=== PATIENT | female | born 1930 | race Caucasian/White ===

== ENCOUNTER → 2016-05-26 | Outpatient (CLI) | payer BC ==
[~2016-05-26] MED LIST: ASPI81TA28 PO; CALC600T PO; DILT120C68 PO; DORZ1SOL6 OP; FLUT0.15 NAE; HYOS1TAB PO; LEVE250T PO; LEVO25TA5 PO; OXYC-57 PO
--- NOTE | 2016-05-27 13:19 | MAMMOGRAPHY REPORT ---
BILATERAL DIGITAL SCREENING MAMMOGRAM TOMOSYNTHESIS WITH CAD: 05/26/2016 CLINICAL HISTORY: Asymptomatic. Personal history of breast cancer. TECHNIQUE: Breast tomosynthesis in addition to standard 2D mammography was performed. Current study was also evaluated with a Computer Aided Detection (CAD) system. COMPARISON: Comparison is made to exams dated: 05/25/2015 mammogram, 01/20/2014 mammogram, 2 mammogram, 12/30/2012 mammogram, and 12/27/2010 mammogram - [facility]. BREAST COMPOSITION: There are scattered areas of fibroglandular density in both breasts. FINDINGS: There are stable post surgical changes within the left breast. A linear scar marker over lies the upper outer middle one third of the left breast. There are vascular calcifications bilater ally. A stable intramammary lymph node in the right upper outer quadrant. No new suspicious mass, architectural distortion or cluster of microcalcifications is seen. IMPRESSION: ACR BI-RADS CATEGORY 1: NEGATIVE There is no mammographic evidence of malignancy. A 1 year screening mammogram is recommended. The p atient will receive written notification of the results. Approximately 10% of breast cancers are not detected with mammography. A negative mammographic repor t should not delay biopsy if a clinically suggestive mass is present. Shakira Shahid M.D. ay/:05/26/2016 17:11:51 Patent Law Specialist: Frieda BALL(R)(M), [facility] letter sent: Normal 1/2 BI-RADS Code: ACR BI-RADS Category 1: Negative
== END ==
LOC: C.MAMM 13:43
PROVIDERS: ATTEND Internal Medicine
DX: Z12.31 Encounter for screening mammogram for malignant neoplasm of breast (principal); Z85.3 Personal history of malignant neoplasm of breast

== ENCOUNTER → 2016-08-15 | Outpatient (CLI) | payer BC ==
[~2016-08-15] MED LIST changes: -OXYC-57 PO
[2016-08-15 09:21] LABS: ALT/SGPT 30 U/L (12-78); AST/SGOT 26 U/L (15-37); BLOOD UREA NITROGEN 16 mg/dl (7-18); CALCIUM 9.1 mg/dl (8.5-10.1); CARBON DIOXIDE 27 mmol/L (21-32); CHLORIDE 108 mmol/L (98-107); CREATININE 0.77 mg/dl (0.60-1.20); GLUCOSE 89 mg/dl (70-99); POTASSIUM 4.2 mmol/L (3.5-5.1); SODIUM 141 mmol/L (136-145)
[2016-08-15 09:24] LABS: ALKALINE PHOSPHATASE 61 U/L (45-117)
== END | disposition home or self-care (01) ==
LOC: C.LABFOXMH 08:59
PROVIDERS: ATTEND Internal Medicine
DX: I10 Essential (primary) hypertension (principal)

== ENCOUNTER → 2017-05-27 | Outpatient (CLI) | payer BC ==
--- NOTE | 2017-05-27 15:13 | MAMMOGRAPHY REPORT ---
BILATERAL DIGITAL SCREENING MAMMOGRAM TOMOSYNTHESIS WITH CAD: 05/27/2017 CLINICAL HISTORY: Asymptomatic. Personal history of breast cancer. TECHNIQUE: Breast tomosynthesis in addition to standard 2D mammography was performed. Current study was also evaluated with a Computer Aided Detection (CAD) system. COMPARISON: Comparison is made to exams dated: 05/26/2016 mammogram, 05/25/2015 mammogram, 01/20/2014 mammogram, 12/30/2012 mammogram, 12/30/2011 mammogram, and 12/27/2010 mammogram - [facility]. BREAST COMPOSITION: There are scattered areas of fibroglandular density in both breasts. FINDINGS: There is evidence of prior surgery in the left breast, with a scar marker overlying the upp er outer quadrant. There are mild vascular calcifications in the left breast and a stable intramamma ry lymph node in the right upper outer quadrant. No new suspicious mass, architectural distortion or cluster of microcalcifications is seen. IMPRESSION: ACR BI-RADS CATEGORY 1: NEGATIVE There is no mammographic evidence of malignancy. A 1 year screening mammogram is recommended. The pa tient will receive written notification of the results. Approximately 10% of breast cancers are not detected with mammography. A negative mammographic report should not delay biopsy if a clinically suggestive mass is present. Shakira Shahid M.D. ay/:05/27/2017 12:41:32 Forming Roll Operator: Ashley MONET)(Mario)(BD), [facility] letter sent: Normal 1/2 BI-RADS Code: ACR BI-RADS Category 1: Negative
== END | disposition home or self-care (01) ==
LOC: C.MAMM 09:53
PROVIDERS: ATTEND Internal Medicine
DX: Z12.31 Encounter for screening mammogram for malignant neoplasm of breast (principal); Z85.3 Personal history of malignant neoplasm of breast

== ENCOUNTER 2017-06-27 22:31 | Observation (INO) | payer BC ==
[~2017-06-27] VITALS: Ht 154.9 cm; Wt 53.0 kg
[~2017-06-27 22:31] MED LIST changes: -DORZ1SOL6 OP; +DORZ1SOL6 OPB
[2017-06-27] MEDS ORDERED: SODIUM CHLORIDE 0.9% 1000ML 1,000 ML IV SCH (23:01)
[2017-06-27] MEDS ORDERED: DILTIAZEM HCL 120 MG EXT REL CAP PO STA (23:06)
[2017-06-27] MEDS ORDERED: LEVETIRACETAM 500 MG TAB PO STA (23:06)
[2017-06-27] MEDS ORDERED: LEVOTHYROXINE 25 MCG TAB PO STA (23:06)
[2017-06-27 23:31] LABS: BASO % 0.9 %; BASO ABS # 0.07 K/uL (0-0.2); EOS % 1.9 %; EOS ABS # 0.15 K/uL (0-0.5); HEMATOCRIT 43.5 % (37-47); HEMOGLOBIN 14.9 g/dL (12.0-16.0); IG# 0.02 K/uL (0.00-0.02); LYMPH % 27.4 %; LYMPH ABS # 2.14 K/uL (1.2-3.4); MEAN CELL VOLUME 95.2 fL (80-100); MEAN CORPUSCULAR HEMOGLOBIN 32.6 pg (25-34); MEAN CORPUSCULAR HGB CONC 34.3 g/dl (32-36); MEAN PLATELET VOLUME 11.9 fL (7.4-10.4); MONO % 12.4 %; MONO ABS # 0.97 K/uL (0.11-0.59); NEUT % 57.1 %; NEUT ABS # 4.46 K/uL (1.4-6.5); PLATELET COUNT 242 K/uL (130-400); RED CELL DISTRIBUTION WIDTH CV 14.3 % (11.5-14.5); WHITE BLOOD COUNT 7.81 K/uL (4.8-10.8)
[2017-06-27 23:54] LABS: BLOOD UREA NITROGEN 16 mg/dl (7-18); CALCIUM 8.7 mg/dl (8.5-10.1); CARBON DIOXIDE 27 mmol/L (21-32); CKMB 2.3 ng/ml (0.5-3.6); CREATININE 0.84 mg/dl (0.60-1.20); GLUCOSE 105 mg/dl (70-99); POTASSIUM 3.6 mmol/L (3.5-5.1); SODIUM 140 mmol/L (136-145)
[2017-06-28] VITALS (7 sets, daily range): BP systolic 127–186; BP diastolic 70–86; PULSE 73–81; TEMP 36.7–36.8; O2SAT 95–98; Ht 154.9 cm; Wt 53.0 kg
[2017-06-28 00:03] LABS: INR 0.9 (0.9-1.1); PTT PATIENT 24.8 SECONDS (21.0-31.0)
--- NOTE | 2017-06-28 00:19 | EMERGENCY ROOM VISIT NOTE ---
History Report prepared by Drew: Gwendolyn Villatoro Under the Supervision of: Dr. Radhames Chand M.D. First contact with patient: 22:41 Chief Complaint: CONFUSION Stated Complaint: CONFUSION History of Present Illness The patient is an 86 year old female who presents to the Emergency Room with complaints of persistent confusion starting this morning. The patient has been confused since waking up this morning. She has had trouble communicating. She has been unable to answer questions that she should be able to answer. She is having trouble finding the words. This has improved throughout the day, but she still feels like she cannot answer all questions. She spoke with her daughter this afternoon who felt that the patient seemed "spacey" and confused. She was not talking as much and she would not answer when asked questions. She was not slurring her speech or making up words. She could understand others. She forgot to take her medications today due to her confusion. She denies any headache, numbness, weakness, or trouble walking. She denies any recent head injury. She is on aspirin. She has a history of TIA or CVA several years ago. She has a history of hypertension. Source of History: patient, family Onset: this morning Position: head Quality: other (confusion) Timing: other (persistent) Modifying Factors (Relieving): other (None) Associated Symptoms: No headache, No weakness, No numbness Note: Pt reports difficulty speaking. Review of Systems See HPI for pertinent positives & negatives. A total of 10 systems reviewed and were otherwise negative. Past Medical & Surgical Medical Problems: (1) Chest pain (2) Epilepsy Family History Cancer Social History Smoking Status: Never Smoker Marital Status: Occupation Status: retired Current/Historical Medications Scheduled Aspirin (Aspirin Ec), 81 MG PO QAM Calcium Carbonate (Calcium 600), 1,200 MG PO BID Diltiazem Hcl Ext Rel (Tiazac), 120 MG PO QAM Dorzolamide Hcl-Timolol Maleat (Cosopt Oph), 1 DROPS OPB BID Levetiracetam (Keppra), 500 MG PO BID Levothyroxine Sodium (Levothyroxine Sodium), 1 TAB PO QAM Scheduled PRN Fluticasone Propionate (Nasal) (Flonase Allergy Relief), 2 SPRAYS STEPHANIE QAM PRN for CONGESTION Hyoscyamine Sulfate (Levsin), 0.125 MG PO DIRECTED PRN for PRN Allergies Coded Allergies: Phenobarbital (Verified Allergy, Severe, HIVES, 06/27/17) Phenytoin (Verified Allergy, Severe, HIVES, 06/27/17) Physical Exam Vital Signs Date Time Temp Pulse Resp B/P (MAP) Pulse Ox O2 Delivery O2 Flow Rate FiO2 06/27/17 23:17 75 06/27/17 23:14 98 Room Air 06/27/17 22:33 36.5 85 20 205/87 96 Room Air Physical Exam Constitutional: Vital signs reviewed. Eyes: Pupils are equal round reactive to light. Conjunctiva are noninjected. ENT: Pharynx is clear without erythema or exudate. Mucous membranes are moist. Neck supple without meningeal signs. Respiratory: Clear to auscultation bilaterally. Breath sounds are equal bilaterally. Cardiovascular: Regular rate and rhythm. No rubs or gallops. GI: Soft, nondistended and nontender. Bowel sounds are present. Musculoskeletal: No peripheral edema. No lower extremity tenderness. Integumentary: No cyanosis. Neurological: The patient is alert and oriented to person and place. Cranial nerves II-XII are intact. Motor is 5 out of 5 all extremities. Sensation is intact to light touch all extremities. Normal speech. No pronator drift. No limb ataxia. Psychiatric: Normal affect. Medical Decision & Procedures ER Provider Diagnostic Interpretation: X-ray results as stated below per interpretation by me: Chest X-ray: No acute infiltrate, no CHF. Radiology results as stated below per my review and the [facility] radiologist's interpretation: Head CT: No intracranial hemorrhage or acute cortical infarct. Laboratory Results 06/27/17 23:10 Red Blood Count 4.57, Mean Corpuscular Volume 95.2, Mean Corpuscular Hemoglobin 32.6, Mean Corpuscular Hemoglobin Concent 34.3, Mean Platelet Volume 11.9, Neutrophils (%) (Auto) 57.1, Lymphocytes (%) (Auto) 27.4, Monocytes (%) (Auto) 12.4, Eosinophils (%) (Auto) 1.9, Basophils (%) (Auto) 0.9, Neutrophils # (Auto ) 4.46, Lymphocytes # (Auto) 2.14, Monocytes # (Auto) 0.97, Eosinophils # (Auto ) 0.15, Basophils # (Auto) 0.07 06/27/17 23:10 Test 06/27/17 23:10 White Blood Count 7.81 K/uL (4.8-10.8) Red Blood Count 4.57 M/uL (4.2-5.4) Hemoglobin 14.9 g/dL (12.0-16.0) Hematocrit 43.5 % (37-47) Mean Corpuscular Volume 95.2 fL (80-100) Mean Corpuscular Hemoglobin 32.6 pg (25-34) Mean Corpuscular Hemoglobin Concent 34.3 g/dl (32-36) Platelet Count 242 K/uL (130-400) Mean Platelet Volume 11.9 fL (7.4-10.4) Neutrophils (%) (Auto) 57.1 % Lymphocytes (%) (Auto) 27.4 % Monocytes (%) (Auto) 12.4 % Eosinophils (%) (Auto) 1.9 % Basophils (%) (Auto) 0.9 % Neutrophils # (Auto) 4.46 K/uL (1.4-6.5) Lymphocytes # (Auto) 2.14 K/uL (1.2-3.4) Monocytes # (Auto) 0.97 K/uL (0.11-0.59) Eosinophils # (Auto) 0.15 K/uL (0-0.5) Basophils # (Auto) 0.07 K/uL (0-0.2) RDW Standard Deviation 50.0 fL (36.4-46.3) RDW Coefficient of Variation 14.3 % (11.5-14.5) Immature Granulocyte % (Auto) 0.3 % Immature Granulocyte # (Auto) 0.02 K/uL (0.00-0.02) Prothrombin Time 9.7 SECONDS (9.0-12.0) Prothromb Time International Ratio 0.9 (0.9-1.1) Activated Partial Thromboplast Time 24.8 SECONDS (21.0-31.0) Partial Thromboplastin Ratio 1.0 Anion Gap 6.0 mmol/L (3-11) Est Creatinine Clear Calc Drug Dose 36.9 ml/min Estimated GFR () 73.5 Estimated GFR (Non- 63.4 BUN/Creatinine Ratio 19.2 (10-20) Calcium Level 8.7 mg/dl (8.5-10.1) Magnesium Level 2.4 mg/dl (1.8-2.4) Total Creatine Kinase 92 U/L (26-192) Creatine Kinase MB 2.3 ng/ml (0.5-3.6) Creatine Kinase MB Ratio 2.5 (0-3.0) Troponin I < 0.015 ng/ml (0-0.045) Laboratory results as reviewed by me. Medications Administered Medications (Trade) Dose Ordered Sig/Tremayne Route Start Time Stop Time Status Last Admin Dose Admin Sodium Chloride 1,000 ml @ 50 mls/hr Q20H IV 06/27/17 23:01 07/27/17 23:00 06/27/17 23:37 50 MLS/HR Levetiracetam (Keppra Tab) 500 mg NOW STAT PO 06/27/17 23:06 06/27/17 23:08 DC 06/27/17 23:36 500 MG Levothyroxine Sodium (Synthroid Tab) 25 mcg NOW STAT PO 06/27/17 23:06 06/27/17 23:08 DC 06/27/17 23:37 25 MCG Diltiazem HCl (TIAzac CAP) 120 mg NOW STAT PO 06/27/17 23:06 06/27/17 23:08 DC 06/27/17 23:37 120 MG ECG Per My Interpretation Indication: altered mental status Rate (beats per minute): 70 Rhythm: normal sinus Findings: other (hyperacute T waves, no ST elevation, no PVC) Comparison ECG Date: 15-Mar-2015 Change: no significant change ED Course 2243: The patient was evaluated in room A4B. A complete history and physical exam was performed. 2301: Sodium Chloride 1000 ml @ 50 mls/hr IV. 2306: Diltiazem HCl 120 mg PO, Synthroid Tab 25 mcg PO, Keppra Tab 500 mg PO. 2341: I discussed the patient's case with Dr. Gill, [facility] hospitalist. She will evaluate the patient for further management. 0004: I reevaluated the patient. Her blood pressure is still high, but she just got her oral medications. I discussed the results with her and family. They verbalized agreement of the treatment plan. She will be evaluated for further management. Hospitalist was at bedside. Medical Decision This is an 86-year-old female who presents with confusion and difficulty with her speech. Differential diagnosis includes TIA, CVA, intracranial mass, intracranial hemorrhage, metabolic derangement. I did perform a limited focused review of portions of the patient's old chart on the electronic medical record. The patient has had no recent pertinent visits to this hospital. I did evaluate the patient as noted above. The patient is presenting with difficulty expressing herself and confusion today. IV access was established. The patient was placed on a continuous shelter monitor. She is very hypertensive but states that she did not take any of her medications. I did give her her medications as noted above. I did order and personally review the patient's 12-lead EKG and chest x-ray as described above. I did order and review the patient's blood work as noted in the electronic medical record. I did order a CT of the head. I did review the images myself as well as the radiology report as described above. I did discuss the test results with the patient and her family. I did recommend hospitalization for further evaluation of her symptoms and MRI of the brain. I did discuss the case with Dr. Gill and the case resource manager. Her blood pressure still elevated but she was just given the medications. Should her blood pressure still be elevated she will be given IV labetalol. Medication Reconcilliation Current Medication List: was personally reviewed by me Blood Pressure Screening Patient's blood pressure: Elevated blood pressure Blood pressure disposition: Referred to PCP Consults Consulting Physician: Dr. Gill [facility] hospitalist Returned Call: [phone] I discussed the patient's case with her. She will evaluate the patient for further management. Impression Primary Impression: Expressive aphasia Additional Impressions: Confusion Hypertensive urgency Scribe Attestation The scribe's documentation has been prepared under my direct and personally reviewed by me in its entirety. I confirm that the note above accurately reflects all work, treatment, procedures, and medical decision making performed by me. Departure Information Dispostion Being Evaluated By Hospitalist Referrals Nicki Amado (PCP) Patient Instructions [facility] Problem Qualifiers
[2017-06-28] MEDS ORDERED: PHARMACIST DISCHARGE MED REC CONSULT PRN (00:30)
[2017-06-28] MEDS ORDERED: FLUTICASONE PROPIONATE NA SPR 16 GM BTL NAE PRN (00:30)
[2017-06-28] MEDS ORDERED: ALUMINUM/MAGNESIUM/SIMETH (MAALOX MAX) 30 ML UDC PO PRN (00:30)
[2017-06-28] MEDS ORDERED: MAGNESIUM HYDROXIDE SUSP 30 ML UDC PO PRN (00:30)
[2017-06-28] MEDS ORDERED: POLYETHYLENE (MIRALAX) 17 GM PACK PO PRN (00:30)
[2017-06-28] MEDS ORDERED: ONDANSETRON INJ 2 MG/ML 2 ML VIAL IV PRN (00:30)
[2017-06-28] MEDS ORDERED: IV FLUIDS COMPLETED PRN (00:30)
[2017-06-28] MEDS ORDERED: ACETAMINOPHEN 325 MG TAB PO PRN (00:30)
--- NOTE | 2017-06-28 00:45 | History and Physical ---
History & Physical Date & Time of Service: June 28, 2017 at 00:25 Chief Complaint: Confusion Primary Care Physician: Nicki Amado History of Present Illness Source: patient, family, spouse This is an 86 yo f with a h/o epilepsy, TIA and HTN that presented to the ED for the evaluation of her stroke like symptoms. The patient woke up this morning feeling slightly confused. She had noticed throughout the day she would make "absent minded" mistakes such as forgetting to put on her underwear and she would realize hours later the mistakes. She also found herself forgetting words during conversations and "having a hard time to find words". She denies any slurring of words or facial drooping. She denies having any weakness in her extremities, blurry vision, difficulty with swallowing, chest pain or SOB. She feels symptoms improving. She did forget to take her medications this morning as well and bp is found to be > 200 systolic. This is unusual for her. The patient has had a TIA " years ago" and has been on ASA 81 mg. Lives at [facility] with her . Past Medical/Surgical History Medical Problems: (1) Chest pain (2) Epilepsy (3) Precordial chest pain (4) Right radial fracture Family History Cancer Social History Smoking Status: Never Smoker Smokeless Tobacco Use: No Alcohol Use: one glass with dinner Drug Use: none Marital Status: Housing status: lives with significant other Occupational Status: retired Immunizations History of Influenza Vaccine: Unknown History of Tetanus Vaccine?: Unknown History of Pneumococcal: Unknown History of Hepatitis B Vaccine: Unknown Allergies Coded Allergies: Phenobarbital (Verified Allergy, Severe, HIVES, 06/27/17) Phenytoin (Verified Allergy, Severe, HIVES, 06/27/17) Home Medications Scheduled Aspirin (Aspirin Ec), 81 MG PO QAM Calcium Carbonate (Calcium 600), 1,200 MG PO BID Diltiazem Hcl Ext Rel (Tiazac), 120 MG PO QAM Dorzolamide Hcl-Timolol Maleat (Cosopt Oph), 1 DROPS OPB BID Levetiracetam (Keppra), 500 MG PO BID Levothyroxine Sodium (Levothyroxine Sodium), 1 TAB PO QAM Scheduled PRN Fluticasone Propionate (Nasal) (Flonase Allergy Relief), 2 SPRAYS STEPHANIE QAM PRN for CONGESTION Hyoscyamine Sulfate (Levsin), 0.125 MG PO DIRECTED PRN for PRN Review of Systems Constitutional: No fever, No chills, No sweats Eyes: No worsening of vision ENT: No hearing loss Respiratory: No cough, No sputum, No wheezing, No shortness of breath, No dyspnea on exertion, No dyspnea at rest, No hemoptysis Cardiovascular: No chest pain Abdomen: No pain, No nausea, No vomiting, No diarrhea, No constipation Musculoskeletal: No joint pain, No muscle pain Genitourinary - Female: No dysuria, No hematuria Neurologic: + memory loss, + problem reported (as above), No paralysis, No weakness, No numbness/tingling, No balance problems Psychiatric: No depression symptoms, No anxiety Endocrine: No fatigue Hematologic / Lymphatic: No abnormal bleeding/bruising Integumentary: No rash Physical Exam Vital Signs Date Time Temp Pulse Resp B/P (MAP) Pulse Ox O2 Delivery O2 Flow Rate FiO2 06/27/17 23:17 75 06/27/17 23:14 98 Room Air 06/27/17 22:33 36.5 85 20 205/87 96 Room Air General Appearance: no apparent distress Head: normocephalic, atraumatic Eyes: normal inspection, PERRL, EOMI ENT: normal ENT inspection, hearing grossly normal Neck: supple, thyroid normal, no JVD, no carotid bruits, trachea midline Respiratory/Chest: normal breath sounds, no respiratory distress, no accessory muscle use Cardiovascular: regular rate, rhythm, no murmur, normal peripheral pulses Abdomen/GI: normal bowel sounds, non tender, soft Back: normal inspection Extremities/Musculoskelatal: no calf tenderness, no pedal edema, normal range of motion Neurologic/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-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 nml as tested, no motor/sensory deficits, alert, normal mood/affect, oriented x 3 Skin: normal color, warm/dry, no rash Lymphatic: no adenopathy Diagnostics Laboratory Results Results Past 24 Hours Test 06/27/17 23:10 Range/Units White Blood Count 7.81 4.8-10.8 K/uL Red Blood Count 4.57 4.2-5.4 M/uL Hemoglobin 14.9 12.0-16.0 g/dL Hematocrit 43.5 37-47 % Mean Corpuscular Volume 95.2 80-100 fL Mean Corpuscular Hemoglobin 32.6 25-34 pg Mean Corpuscular Hemoglobin Concent 34.3 32-36 g/dl Platelet Count 242 130-400 K/uL Mean Platelet Volume 11.9 7.4-10.4 fL Neutrophils (%) (Auto) 57.1 % Lymphocytes (%) (Auto) 27.4 % Monocytes (%) (Auto) 12.4 % Eosinophils (%) (Auto) 1.9 % Basophils (%) (Auto) 0.9 % Neutrophils # (Auto) 4.46 1.4-6.5 K/uL Lymphocytes # (Auto) 2.14 1.2-3.4 K/uL Monocytes # (Auto) 0.97 0.11-0.59 K/uL Eosinophils # (Auto) 0.15 0-0.5 K/uL Basophils # (Auto) 0.07 0-0.2 K/uL RDW Standard Deviation 50.0 36.4-46.3 fL RDW Coefficient of Variation 14.3 11.5-14.5 % Immature Granulocyte % (Auto) 0.3 % Immature Granulocyte # (Auto) 0.02 0.00-0.02 K/uL Prothrombin Time 9.7 9.0-12.0 SECONDS Prothromb Time International Ratio 0.9 0.9-1.1 Activated Partial Thromboplast Time 24.8 21.0-31.0 SECONDS Partial Thromboplastin Ratio 1.0 Sodium Level 140 136-145 mmol/L Potassium Level 3.6 3.5-5.1 mmol/L Chloride Level 107 98-107 mmol/L Carbon Dioxide Level 27 21-32 mmol/L Anion Gap 6.0 3-11 mmol/L Blood Urea Nitrogen 16 7-18 mg/dl Creatinine 0.84 0.60-1.20 mg/dl Est Creatinine Clear Calc Drug Dose 36.9 ml/min Estimated GFR () 73.5 Estimated GFR (Non- 63.4 BUN/Creatinine Ratio 19.2 10-20 Random Glucose 105 70-99 mg/dl Calcium Level 8.7 8.5-10.1 mg/dl Magnesium Level 2.4 1.8-2.4 mg/dl Total Creatine Kinase 92 26-192 U/L Creatine Kinase MB 2.3 0.5-3.6 ng/ml Creatine Kinase MB Ratio 2.5 0-3.0 Troponin I < 0.015 0-0.045 ng/ml Diagnostic Radiology CXR- no overt acute changes per personal review CT Head- no acute findings, chronic changes noted- per [facility] EKG HR 70 Normal sinus rhythm Normal ECG When compared with ECG of 15-MAR-2015 07:05, No significant change was found Impression Assessment and Plan This is an 86 yo f with a h/o TIA, HTN, epilepsy that presents to us with expressive aphasia/ hypertensive urgency concerning for TIA vs stroke TIA with stroke r/o, no TPA - tele admission - MRI brain without contrast - Carotid doppler, echo - FLP - Continue ASA 81 mg - consult neuro Hypertensive urgency - difficult to determine if this is a cause of the patient's symptoms vs sequelae for forgetting her medications this am - PO medications give in ED - Will monitor and treat for > 220/120 with IV bp medications - Diltiazem to restart in am at 120 mg qam Epilepsy - cont Keppra 500 mg bid Hypothyroidism - Synthroid 25 mcg cont DVT Prophylaxis FULL CODE Attending addendum: I have physically seen this patient, have supervised the medical residents activities, and agree with the H&P unless as otherwise noted. Assessment and Plan: TIA with history of previous TIA, and spontaneously resolved symptoms of expressive aphasia without use of TPA/history of seizure disorder-- The patient will be admitted to telemetry for serial cardiac enzymes, serial EKG's, cardiac rhythm monitoring and a 2-D echocardiogram with Dopplers. Discontinue aspirin 81 mg daily. Start clopidogrel 75 mg daily. No seizure activity or postictal state suggested. Continue Keppra 500 mg p.o. twice daily. Continue diltiazem 120 mg p.o. every morning. Permissive hypertension target systolic blood pressure to be 180. Order MRI brain combo, MRA neck combo, and MRA head without contrast. Consult neurology. 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
[2017-06-28] MEDS ORDERED: LEVOTHYROXINE 25 MCG TAB PO SCH (06:00)
--- NOTE | 2017-06-28 06:16 | DIAGNOSTIC IMAGING REPORT ---
CHEST ONE VIEW PORTABLE CLINICAL HISTORY: Stroke COMPARISON STUDY: 03/14/2015 FINDINGS: The cardiac and mediastinal contours are normal. There is no evidence of focal pulmonary consolidation. There is no evidence of failure. No pleural effusions are visualized.[ There is minimal linear scar/atelectasis the left lung base. IMPRESSION: No active disease in the chest. Electronically signed by: Duong Murry M.D. 06/28/2017 6:15 AM Dictated Date/Time: 06/28/2017 6:14 AM
--- NOTE | 2017-06-28 06:17 | DIAGNOSTIC IMAGING REPORT ---
CT HEAD WITHOUT CONTRAST (CT) CLINICAL HISTORY: Stroke COMPARISON STUDY: 01/14/2015 TECHNIQUE: Axial CT of the brain is performed from the vertex to the skull base. IV contrast was not administered for this examination. A dose lowering technique was utilized adhering to the principles of ALARA. CT DOSE: 537.48 mGy.cm FINDINGS: No intra or extra-axial mass lesions are visualized. There is no CT evidence of acute cortical infarction. There is no evidence of midline shift. There is no acute hemorrhage. No calvarial fractures are visualized. There are patchy white matter hypodensities likely on a small vessel basis. There is no evidence of pathologic ventricular dilatation. There is no evidence of acute sinusitis IMPRESSION: No acute intracranial findings Electronically signed by: Duong Murry M.D. 06/28/2017 6:16 AM Dictated Date/Time: 06/28/2017 6:15 AM
[2017-06-28] MEDS ORDERED: LEVETIRACETAM 250 MG TAB PO SCH ×3 (09:00→21:00)
[2017-06-28] MEDS ORDERED: CALCIUM 600MG + VIT D 400 IU TAB PO SCH (09:00)
[2017-06-28] MEDS ORDERED: DILTIAZEM HCL 120 MG EXT REL CAP PO SCH (09:00)
[2017-06-28] MEDS ORDERED: DORZOLAMIDE/TIMOLOL 22.3/6.8MG/ML 10 ML BTL OPB SCH (09:00)
[2017-06-28] MEDS ORDERED: CLOPIDOGREL BISULFATE 75 MG TAB PO SCH (09:00)
[2017-06-28] MEDS ORDERED: ASPIRIN 81 MG ECTAB PO SCH (09:00)
[2017-06-28] MEDS ORDERED: HEPARIN SOD 5000 UNIT/0.5 ML CARP SQ SCH (09:00)
--- NOTE | 2017-06-28 09:35 | Neurology Consultation ---
Neurology Consultation Date of Consultation: June 28, 2017. Attending Physician: Norbert Ricci D.O. Primary Care Physician: Nicki Amado Reason for Consultation: Stroke-like episode History of Present Illness Source: patient, hospital records The patient is an 86-year-old left-handed female with a chief complaint confusion and associated word-finding difficulty that was noted upon awakening yesterday morning. Her symptoms improved gradually yesterday and have resolved this morning. She denies experiencing any associated weakness, sensory loss, or change in vision. She has had similar episodes previously that have been potentially attributed to her seizure disorder for which she has followed with Dr. Onofre in the past. She continues with Keppra 500 milligrams twice daily and reports that it is been a few years since her last seizure-like episode. Her past medical history is also notable for TIA and hypertension. She takes a daily low-dose aspirin. I reviewed the images and radiologist's interpretation of this patient CT of the head completed yesterday. This study is negative for hemorrhage or acute process. There are patchy white matter hypodensities consistent with chronic cerebral vascular change. Electrocardiogram reveals a normal sinus rhythm, 70 beats per minute. The patient has been ordered Plavix as well as more extensive neuro imaging including MRI of the brain and MR angiography of the head and neck as well as a carotid duplex and transthoracic echocardiogram. She was notably hypertensive at the time of presentation with a blood pressure of 205/87. Her current blood pressure is improved. She denies headache or any recurrence of her neurologic symptoms at this time. Past Medical/Surgical History Medical Problems: (1) Confusion Status: Acute (2) Expressive aphasia Status: Acute (3) Hypertensive urgency Status: Acute (4) Precordial chest pain Status: Acute Family History Noncontributory Social History Smokeless Tobacco Use: No Alcohol Use: one glass with dinner Drug Use: none Marital Status: Occupation Status: retired Allergies Coded Allergies: Phenobarbital (Verified Allergy, Severe, HIVES, 06/27/17) Phenytoin (Verified Allergy, Severe, HIVES, 06/27/17) Current Inpatient Medications Current Inpatient Medications Medications (Trade) Dose Ordered Sig/[place] Route Start Time Stop Time Status Last Admin Dose Admin Miscellaneous Information (Pharmacist Discharge Med Rec Consult) 1 ea UD PRN N/A 06/28/17 00:30 07/28/17 00:29 Heparin Sodium (Porcine) (Heparin Sq 5000 Unit/0.5ml) 5,000 unit Q12 SQ 06/28/17 09:00 07/28/17 08:59 Acetaminophen (Tylenol Tab) 650 mg Q4H PRN PO 06/28/17 00:30 07/28/17 00:29 06/28/17 07:27 650 MG Al Hydrox/Mg Hydrox/Simethicone (Maalox Max Susp) 15 ml Q4H PRN PO 06/28/17 00:30 07/28/17 00:29 Magnesium Hydroxide (Milk Of Magnesia Susp) 30 ml Q12H PRN PO 06/28/17 00:30 07/28/17 00:29 Ondansetron HCl (Zofran Inj) 4 mg Q6H PRN IV 06/28/17 00:30 07/28/17 00:29 Polyethylene (Miralax Powder Packet) 17 gm DAILY PRN PO 06/28/17 00:30 07/28/17 00:29 Diltiazem HCl (TIAzac CAP) 120 mg QAM PO 06/28/17 09:00 07/28/17 08:59 06/28/17 07:28 120 MG Dorzolamide/ Timolol (Cosopt Op Soln) 1 drops BID OPB 06/28/17 09:00 07/28/17 08:59 06/28/17 07:29 1 DROPS Fluticasone Propionate (Flonase Nasal [place]) 2 sprays QAM PRN STEPHANIE 06/28/17 00:30 07/28/17 00:29 Levetiracetam (Keppra Tab) 500 mg BID PO 06/28/17 09:00 07/28/17 08:59 06/28/17 07:28 500 MG Levothyroxine Sodium (Synthroid Tab) 25 mcg DAILYBB PO 06/28/17 06:00 07/28/17 05:59 06/28/17 06:20 25 MCG Calcium/Vitamin D (Caltrate Plus Tab) 2 tab BID PO 06/28/17 09:00 07/28/17 08:59 06/28/17 07:29 2 TAB Miscellaneous (Iv Fluids Completed) 1 ea PRN PRN N/A 06/28/17 00:30 06/28/18 00:29 Clopidogrel Bisulfate (plAVix TAB) 75 mg QAM PO 06/28/17 09:00 07/28/17 08:59 06/28/17 07:29 75 MG Review of Systems Constitutional: No fever chills Eyes: No vision loss or diplopia ENT: No vertigo, tinnitus, or hearing loss Cardiovascular: No chest pain or palpitations Respiratory: No coughing or shortness of breath Neurological: As per history of present illness Musculoskeletal: No myalgia or arthralgia Hematologic: No abnormal bruising or bleeding A full 10 point review of systems was obtained from this patient with pertinent positives and negatives described in the history of present illness and otherwise listed above. All remaining systems were reviewed and are negative. Physical Exam Vital Signs (Past 24 Hrs): Date Time Temp Pulse Resp B/P (MAP) Pulse Ox O2 Delivery O2 Flow Rate FiO2 06/28/17 08:00 Room Air 06/28/17 07:47 36.8 73 16 148/71 (96) 97 Room Air 06/28/17 07:13 36.8 73 16 148/71 (96) 97 06/28/17 04:00 Room Air 06/28/17 03:27 36.8 77 17 147/70 (95) 95 Room Air 06/28/17 01:44 36.8 81 18 186/86 98 Room Air 06/28/17 01:03 74 17 187/94 98 Room Air 06/28/17 00:05 75 203/86 98 Room Air 06/27/17 23:17 75 06/27/17 23:14 98 Room Air 06/27/17 22:33 36.5 85 20 205/87 96 Room Air This is a well-developed, well-nourished elderly female. She is lying comfortably in bed. She is alert and fully oriented. Recent and remote memory intact. Attention and concentration normal. Patient exhibits a normal spontaneous speech pattern. She is able to name objects, repeat phrases, and read text without difficulty. She exhibits an age-appropriate fund of knowledge a normal vocabulary. Visual liu full to confrontation. Visual acuity normal. Pupils equal round react to light and accommodation. Eye movements normal. Facial sensation intact. There is normal facial symmetry and strength. No facial droop. Hearing intact. Palate elevates to midline. Tongue protrudes to midline. Shoulder shrug strength intact. Sensation intact in all 4 limbs. Deep tendon reflexes intact and symmetrical for the arms and legs. Plantar responses downgoing bilaterally. There is no dysdiadochokinesia or dysmetria of [id number] or heel to jacobs bilaterally. I am unable to adequately visualize the optic nerves and posterior segments with direct ophthalmoscopic examination. Gait and station not tested due to safety concerns. Patient exhibits normal strength and tone for all 4 limbs proximally and distally. No atrophy. No abnormal movements observed. Laboratory Results Past 24 Hours: 06/27/17 23:10 Red Blood Count 4.57, Mean Corpuscular Volume 95.2, Mean Corpuscular Hemoglobin 32.6, Mean Corpuscular Hemoglobin Concent 34.3, Mean Platelet Volume 11.9, Neutrophils (%) (Auto) 57.1, Lymphocytes (%) (Auto) 27.4, Monocytes (%) (Auto) 12.4, Eosinophils (%) (Auto) 1.9, Basophils (%) (Auto) 0.9, Neutrophils # (Auto ) 4.46, Lymphocytes # (Auto) 2.14, Monocytes # (Auto) 0.97, Eosinophils # (Auto ) 0.15, Basophils # (Auto) 0.07 06/27/17 23:10 Test 06/27/17 23:10 White Blood Count 7.81 K/uL (4.8-10.8) Red Blood Count 4.57 M/uL (4.2-5.4) Hemoglobin 14.9 g/dL (12.0-16.0) Hematocrit 43.5 % (37-47) Mean Corpuscular Volume 95.2 fL (80-100) Mean Corpuscular Hemoglobin 32.6 pg (25-34) Mean Corpuscular Hemoglobin Concent 34.3 g/dl (32-36) Platelet Count 242 K/uL (130-400) Mean Platelet Volume 11.9 fL (7.4-10.4) Neutrophils (%) (Auto) 57.1 % Lymphocytes (%) (Auto) 27.4 % Monocytes (%) (Auto) 12.4 % Eosinophils (%) (Auto) 1.9 % Basophils (%) (Auto) 0.9 % Neutrophils # (Auto) 4.46 K/uL (1.4-6.5) Lymphocytes # (Auto) 2.14 K/uL (1.2-3.4) Monocytes # (Auto) 0.97 K/uL (0.11-0.59) Eosinophils # (Auto) 0.15 K/uL (0-0.5) Basophils # (Auto) 0.07 K/uL (0-0.2) RDW Standard Deviation 50.0 fL (36.4-46.3) RDW Coefficient of Variation 14.3 % (11.5-14.5) Immature Granulocyte % (Auto) 0.3 % Immature Granulocyte # (Auto) 0.02 K/uL (0.00-0.02) Prothrombin Time 9.7 SECONDS (9.0-12.0) Prothromb Time International Ratio 0.9 (0.9-1.1) Activated Partial Thromboplast Time 24.8 SECONDS (21.0-31.0) Partial Thromboplastin Ratio 1.0 Anion Gap 6.0 mmol/L (3-11) Est Creatinine Clear Calc Drug Dose 36.9 ml/min Estimated GFR () 73.5 Estimated GFR (Non- 63.4 BUN/Creatinine Ratio 19.2 (10-20) Calcium Level 8.7 mg/dl (8.5-10.1) Magnesium Level 2.4 mg/dl (1.8-2.4) Total Creatine Kinase 92 U/L (26-192) Creatine Kinase MB 2.3 ng/ml (0.5-3.6) Creatine Kinase MB Ratio 2.5 (0-3.0) Troponin I < 0.015 ng/ml (0-0.045) Impression Resolved confusion/word-finding difficulty. Etiology not completely certain although TIA not excluded. Partial complex seizure with speech arrest not completely excluded in light of her history of seizure disorder and similar episodes in the past. Patient is currently neurologically intact and probably at her baseline. Plan Proceed with stroke evaluation as ordered including MRI of the brain, MRA of the head and neck, carotid ultrasound, and transthoracic echocardiogram. I agree with Plavix 75 milligrams twice daily. Continue medical management of hypertension as appropriate.. I would also recommend increasing her dosage of Keppra to 750 milligrams twice daily. I discussed obtaining an EEG while the patient is an inpatient. However, she would rather have this test completed as an outpatient if absolutely necessary as she has a strong interest in going back home today if her stroke evaluation is negative. I think holding off on the EEG is certainly reasonable at this point in time as I would still recommend empirically increasing her Keppra as above. This patient may follow up with me in clinic.
--- NOTE | 2017-06-28 10:03 | DIAGNOSTIC IMAGING REPORT ---
MR ANGIOGRAPHY OF THE [place] OF [place] NO CONTRAST CLINICAL HISTORY: TIA WITH EXPRESSIVE APHASIA, SEIZURE DISORDER COMPARISON STUDY: None. A 3-D [id number] MR angiographic sequence of the [place] was performed. Both the source and projection images were reviewed. There is no evidence of major intracranial branch occlusion. There is no evidence of intracranial stenosis. There are no lesions suspicious for aneurysm. IMPRESSION: Unremarkable MR angiography of the [place]. Electronically signed by: Duong Murry M.D. 06/28/2017 10:02 AM Dictated Date/Time: 06/28/2017 10:00 AM
--- NOTE | 2017-06-28 11:20 | DIAGNOSTIC IMAGING REPORT ---
MRI OF THE BRAIN WITHOUT AND WITH IV CONTRAST CLINICAL HISTORY: TIA WITH EXPRESSIVE APHASIA, SEIZURE DISORDER COMPARISON STUDY: 01/14/2016 TECHNIQUE: MRI of the brain was performed from the vertex to the skull base utilizing various T1 and T2 weighted sequences. Following the IV administration of 5 mL of Gadavist contrast, additional enhanced images were obtained. FINDINGS: Sagittal T1, axial diffusion, proton density and T2 weighted axial, coronal FLAIR, and pre and post axial T1-weighted images were acquired. These were supplemented with post gadolinium coronal T1 weighted images. No intra or extra-axial mass lesions are visualized. Axial diffusion-weighted images reveal no evidence of acute or subacute infarction. There is no evidence of ventricular dilatation. Proton density T2-weighted and FLAIR images reveal scattered foci of increased T2 signal within the white matter, likely on a small vessel basis. The findings remain similar to the prior January 2016 study There are no abnormal flow voids. There is a stable subtle 5 mm focus of enhancement within the central mateo. This is of doubtful acute clinical significance. IMPRESSION: 1. No evidence of acute or subacute infarction 2. Scattered foci of increased T2 signal within the white matter, likely on a small vessel basis and unchanged from the prior January 2016 study 3. Subtle 5 mm focus of enhancement within the central mateo. This remains unchanged from the prior study and is of doubtful acute clinical significance Electronically signed by: Duong Murry M.D. 06/28/2017 11:19 AM Dictated Date/Time: 06/28/2017 11:15 AM
--- NOTE | 2017-06-28 11:22 | DIAGNOSTIC IMAGING REPORT ---
NECK MRA HISTORY: TIA WITH EXPRESSIVE APHASIA, SEIZURE DISORDER TECHNIQUE: [id number] and gadolinium-enhanced MRA of the neck was performed both before and after the intravenous administration of contrast. All measurements were calculated based on NASCET criteria. The patient was administered 5 cc of intravenous Gadavist. COMPARISON STUDY: None. FINDINGS: The aortic arch and proximal great vessels are widely patent. There is no significant stenosis, occlusion, or dissection identified within the bilateral common carotid, internal carotid, or vertebral arteries. IMPRESSION: No significant stenosis, occlusion, or dissection identified within the carotid or vertebral arteries. Electronically signed by: Duong Murry M.D. 06/28/2017 11:21 AM Dictated Date/Time: 06/28/2017 11:19 AM
[2017-06-28] MEDS ORDERED: PLV75 PO (12:34)
[2017-06-28] MEDS ORDERED: KPP250 PO (12:34)
--- NOTE | 2017-06-28 12:43 | Discharge Instructions ---
Discharge Instructions Date of Service June 28, 2017. Admission Reason for Admission: Expressive Aphasia, Hypertensive Urgency Discharge Discharge Diagnosis / Problem: Suspected TIA, expressive aphasia, hypertension Discharge Goals Goal(s): Improve function, Diagnostic testing (possible EEG) Activity Recommendations Activity Limitations: resume your previous activity . Instructions / Follow-Up Instructions / Follow-Up Medications: -PLAVIX: replaces aspirin for stroke prevention, take 75mg daily -KEPPRA: dose increased to 750mg twice a day per neurology Expressive aphasia, confusion that lasted less than 24 hours possible TIA, no evidence of stroke on MRI brain, MRA head and neck normal no arrhythmia on monitor, echo completed and needs interpreted can be discharged back to independent living, no current neurologic deficits will take Plavix 75mg daily, this replaces aspirin discussed statin therapy, patient says she took in the past, would prefer to not be on them Seizure disorder: concerns that maybe the symptoms were due to seizure Keppra increased to 750mg twice a day Dr. Kc would like to get EEG as outpatient, can be ordered by PCP FOLLOW UP - Dr. Nielson this week - Dr. Kc, neurology clinic, in one month, call for appointment Risk Factors for Stroke: You can reduce your chances of stroke by working with your medical provider to adopt a healthy lifestyle. Some specific ways to lower your chance of stroke are: * If you are a smoker, now is the time to stop smoking cigarettes * If you are diabetic, improve the control of your blood sugars * Avoid excessive amounts of alcohol * Control high blood pressure * Lose weight if you are overweight * Be sure to lead an active lifestyle * Eat a healthy diet low in salt, cholesterol and fat You should know about other risk factors for stroke that you are unable to control. These include: * Age 55 years or older * Male gender * Certain racial groups: , or / * Family History of Stroke, Mini stroke or Heart Attack * Sickle Cell Disease Follow Up: It is important for you to keep your follow up appointments with your medical provider. Current Hospital Diet Patient's current hospital diet: AHA Diet (Heart Healthy) Discharge Diet Recommended Diet: AHA Diet (Heart Healthy) Pending Studies Studies pending at discharge: yes List of pending studies: Echo, transthoracic Medical Emergencies . Who to Call and When: Medical Emergencies: Call 911 immediately if you experience any of the following warning signs and symptoms of Stroke: * Sudden numbness or weakness of the face, arm or leg, especially on one side of the body * Sudden confusion, trouble speaking or understanding * Sudden trouble seeing in one or both eyes * Sudden trouble walking, dizziness, loss of balance or coordination * Sudden severe headache with no cause Do not delay calling 911 if you experience any warning signs or symptoms of a stroke. Delay in seeking medical attention may affect what treatments can be given to you. . Non-Emergent Contact Non-Emergency issues call your: Primary Care Provider, Neurologist Call Non-Emergent contact if: you have any medication questions . . "Provider Documentation" section prepared by Norbert Ricci. . Stroke Core Measures Reason no t-PA for Stroke: Treatment not indicated Reason no antithrom by day 2: Treatment provided - N/A Reason no antithrom at D/C: Treatment provided - N/A Reason no statin at D/C: Refusal of tx by patient Reason no anticoag w/a fib: Treatment not indicated [place] Drug Monitoring Program Search Results: no issues identified
--- NOTE | 2017-06-28 14:50 | Pharmacy Progress Note ---
Pharmacist Stroke Counseling Date of Service June 28, 2017. Scope Pharmacy has been consulted to provide medication discharge counseling for this patient admitted with transient ischemic attack as per the Pharmacist Discharge Counseling for Stroke Patients Protocol. Medications on Discharge New Medications: Clopidogrel Bisulfate (Clopidogrel) 75 Mg Tab 75 MG PO QAM, #30 TAB 3 Refills Levetiractam (Keppra) 250 Mg Tab 750 MG PO BID, #120 TAB 3 Refills Continued Medications: Calcium Carbonate (Calcium 600) 600 Mg Tab 1200 MG PO BID Diltiazem Hcl Ext Rel (Tiazac) 120 Mg Capcr 120 MG PO QAM, CAP Dorzolamide Hcl-Timolol Maleat (Cosopt Oph) 1 Martha Martha 1 DROPS OPB BID, #10 ML 3 Refills Fluticasone Propionate (Nasal) (Flonase Allergy Relief) 50 Mcg/Act Spr 2 SPRAYS STEPHANIE QAM PRN for CONGESTION Hyoscyamine Sulfate (Levsin) 0.125 Mg Tab 0.125 MG PO DIRECTED PRN for PRN, TAB Levothyroxine Sodium (Levothyroxine Sodium) 25 Mcg Tab 1 TAB PO QAM for 90 Days, #90 TAB 3 Refills Discontinued Medications: Aspirin (Aspirin Ec) 81 Mg Tab 81 MG PO QAM Levetiracetam (Keppra) 250 Mg Tab 500 MG PO BID, TAB Note: Current Keppra tablet is 500 mg, not 250 mg Patient uses Levsin for esophageal spasm - uses maybe once a month Action The above medications, specifically ones for stroke treatment/prophylaxis, have been reviewed in detail with the patient and/or patient home furnishings sales representative(s) prior to discharge. This includes indication, common adverse reactions, drug interactions, and medication administration. Medication counseling has been employed using the teach-back method to ensure understanding. Outcome The patient and/or patient home furnishings sales representative(s) have demonstrated understanding of the medications. Please note, they are aware that the pharmacist will call them within 72 hours post-discharge to confirm that the appropriate medications are being taken and answer any further medication related questions the patient might have at that time. Contact information Individual to be contacted: patient Phone number: [phone] Best time to call: around noon Additional comments: * Counseled patient ( also in room) regarding new medications today * She is aware to stop the aspirin and start Plavix. Counseled regarding signs/ symptoms of bleeding. She does not typically take NSAIDS for pain/headache. * Her Keppra is being increased to 750 mg BID and she currently has 500 mg tabs at home (confirmed this with her). Since tablets are NOT able to be split, we sent a 250 mg tablet x 1 home with her for deep. She uses [facility] and they are not open today but she will have [facility] fax her prescriptions to them for tomorrow. She also states that she requires brand only of this because Dr. Nielson thought she had a seizure when getting the generic at one point. I spoke with Dr. Ricci. Brand necessary written on her new Rx. Of note, new Rx was for 250 mg tablets. They make a 750 mg tablet but patient reports she has difficulty swallowing large tablets. Patient okay with using the 250 mg tabs for now and can even take one with her 500 mg tabs she already has at home (just had a 30 day supply filled). * Patient is not being discharged on a statin because she would prefer to not take one. She has already discussed this with Dr. Ricci. Thank you for allowing pharmacy to be involved in the care of this patient. Please call [phone] or [phone] with any additional questions
--- NOTE | 2017-06-28 15:30 | ECHOCARDIOGRAM REPORT ---
*NOTICE TO RECEIVING [employer] This information is strictly Confidential and protected under [place] law. [place] law prohibits you from making any further disclosure of this information unless further disclosure is expressly permitted by the written consent of the person to whom it pertains or is authorized by law. A general authorization for the release of medical or other information is not sufficient for this purpose. Hospital accepts no responsibility if the information is made available to any other person, INCLUDING THE PATIENT. Interpretation Summary * Name: CARLYLE KING Study Date: 06/28/2017 07:40 AM BP: 147/70 mmHg * Patient Location: C.2T\S\S240\S\2 HR: 77 * : 1930 (M/d/yyyy) Gender: Female Height: 61 in * Age: 86 yrs Ethnicity: [place] Weight: 119 lb * Ordering Physician: Cherise Gill * Referring Physician: Nicki Amado * Performed By: Parveen Chatman RCS * * Reason For Study: Stroke like symptoms * BSA: 1.5 m2 * No cardiac source of emboli noted. * -- Conclusions -- * There is borderline concentric left ventricular hypertrophy. * Left ventricular systolic function is normal. * Grade I diastolic dysfunction, (abnormal relaxation pattern). * There is mild mitral regurgitation. Procedure Details * A complete two-dimensional transthoracic echocardiogram was performed (2D, M-mode, Doppler and color flow Doppler). Left Ventricle * The left ventricle is normal in size. * There is borderline concentric left ventricular hypertrophy. * Ejection Fraction = 60-65%. * Left ventricular systolic function is normal. * Grade I diastolic dysfunction, (abnormal relaxation pattern). * The left ventricular wall motion is normal. Right Ventricle * The right ventricle is normal in size and function. * The right ventricular systolic function is normal as assessed by tricuspid annular plane systolic excursion (TAPSE) (normal >1.5 cm). Atria * The left atrial size is normal. * Right atrial size is normal. Mitral Valve * The mitral valve is grossly normal. * There is mild mitral regurgitation. Tricuspid Valve * The tricuspid valve is not well visualized, but is grossly normal. * There is trace tricuspid regurgitation. * Right ventricular systolic pressure is normal. Aortic Valve * The aortic valve is normal in structure and function. * The aortic valve is trileaflet. * No hemodynamically significant valvular aortic stenosis. * There is no significant aortic regurgitation. Pulmonic Valve * The pulmonic valve is not well visualized. Great Vessels * The aortic root is normal size. Pericardium/Pleural * There is no pericardial effusion. Great Vessels * Normal inferior vena cava diameter and respiratory variation suggests normal central venous pressure. MMode 2D Measurements and Calculations IVSd 0.93 cm IVSs 0.96 cm LVIDd 4.0 cm LVIDs 2.7 cm LVPWd 0.87 cm LVPWs 1.1 cm IVS/LVPW 1.1 FS 32.8 % EDV(Teich) 68.9 ml ESV(Teich) 26.3 ml EF(Teich) 61.9 % EDV(cubed) 62.8 ml ESV(cubed) 19.0 ml EF(cubed) 69.7 % % IVS thick 3.6 % % LVPW thick 24.9 % LV mass(C)d 108.1 grams LV mass(C)dI 71.4 grams/m\S\2 LV mass(C)s 71.9 grams LV mass(C)sI 47.5 grams/m\S\2 SV(Teich) 42.6 ml SI(Teich) 28.1 ml/m\S\2 SV(cubed) 43.7 ml SI(cubed) 28.9 ml/m\S\2 Ao root diam 3.2 cm Ao root area 7.9 cm\S\2 ACS 1.0 cm LA dimension 3.3 cm LA/Ao 1.0 EDV(MOD-sp4) 68.0 ml ESV(MOD-sp4) 30.0 ml EF(MOD-sp4) 55.9 % EDV(MOD-sp2) 94.0 ml ESV(MOD-sp2) 40.0 ml EF(MOD-sp2) 57.4 % SV(MOD-sp4) 38.0 ml SI(MOD-sp4) 25.1 ml/m\S\2 SV(MOD-sp2) 54.0 ml SI(MOD-sp2) 35.6 ml/m\S\2 Doppler Measurements and Calculations MV E max cheri 70.6 cm/sec MV A max cheri 75.0 cm/sec MV E/A 0.94 MV P1/2t max cheri 81.2 cm/sec MV P1/2t 68.7 msec MVA(P1/2t) 3.2 cm\S\2 MV dec slope 346.1 cm/sec\S\2 MV dec time 0.21 sec Ao V2 max 94.5 cm/sec Ao max PG 3.6 mmHg Ao max PG (full) 0.67 mmHg LV V1 max PG 2.9 mmHg LV V1 max 85.1 cm/sec PA V2 max 74.8 cm/sec PA max PG 2.3 mmHg PI max cheri 91.7 cm/sec PI max PG 3.4 mmHg PI dec slope 94.4 cm/sec\S\2 PI P1/2t 284.3 msec TR max cheri 170.2 cm/sec
--- NOTE | 2017-07-01 10:59 | Discharge Summary ---
Discharge Summary Date of Service June 28, 2017. Discharge Summary Admission Date: June 28, 2017 at 00:25 Discharge Date: June 28, 2017 Discharge Disposition: Home Principal Diagnosis: TIA with expressive aphasia Problems/Secondary Diagnoses: Hypertension Seizure disorder Immunizations: Have You Had Influenza Vaccine: Unknown History of Tetanus Vaccine?: Unknown History of Pneumococcal: Unknown History of Hepatitis B Vaccine: Unknown Procedures: none Consultations: Neurology Medication Reconciliation New Medications: Clopidogrel Bisulfate (Clopidogrel) 75 Mg Tab 75 MG PO QAM, #30 TAB 3 Refills Levetiractam (Keppra) 250 Mg Tab 750 MG PO BID, #120 TAB 3 Refills Continued Medications: Calcium Carbonate (Calcium 600) 600 Mg Tab 1200 MG PO BID Diltiazem Hcl Ext Rel (Tiazac) 120 Mg Capcr 120 MG PO QAM, CAP Dorzolamide Hcl-Timolol Maleat (Cosopt Oph) 1 Martha Martha 1 DROPS OPB BID, #10 ML 3 Refills Fluticasone Propionate (Nasal) (Flonase Allergy Relief) 50 Mcg/Act Spr 2 SPRAYS STEPHANIE QAM PRN for CONGESTION Hyoscyamine Sulfate (Levsin) 0.125 Mg Tab 0.125 MG PO DIRECTED PRN for PRN, TAB Levothyroxine Sodium (Levothyroxine Sodium) 25 Mcg Tab 1 TAB PO QAM for 90 Days, #90 TAB 3 Refills Discontinued Medications: Aspirin (Aspirin Ec) 81 Mg Tab 81 MG PO QAM Levetiracetam (Keppra) 250 Mg Tab 500 MG PO BID, TAB Discharge Exam Patient completely recovered in the morning of discharge. Speech normal, strength normal. Reviewed studies, no stroke seen on MRI brain. Appreciate recommendations from neurology for changing aspirin to Plavix, increasing dose of Keppra to 750mg BID. Asked patient about statin therapy, recommended it for prevention of future strokes. She said she tried statins in the past, would prefer not to be on them. Understood that they can reduce risk of future stroke. Discussed getting EEG outpatient, she preferred to discuss with Dr. Nielson and Dr. Kc. Review of Systems: Constitutional: No fever, No chills, No sweats, No weight loss, No weakness , No fatigue, No problem reported Eyes: No worsening of vision, No eye pain, No redness, No discharge, No diplopia, No problem reported ENT: No hearing loss, No unusual epistaxis, No nasal symptoms, No sore throat, No tinnitus, No dental problems, No trouble swallowing, No problem reported Respiratory: No cough, No sputum, No wheezing, No shortness of breath, No dyspnea on exertion, No dyspnea at rest, No hemoptysis, No problem reported Cardiovascular: No chest pain, No orthopnea, No PND, No edema, No claudication, No palpitations, No problem reported Abdomen: No pain, No nausea, No vomiting, No diarrhea, No constipation, No GI bleeding, No problem reported Musculoskeletal: No joint pain, No muscle pain, No swelling, No calf pain, No problem reported Genitourinary - Female: No dysuria, No urinary frequency, No urinary urgency , No urinary incontinence, No urinary retention, No hematuria Neurologic: No memory loss, No paralysis, No weakness, No numbness/tingling , No vertigo, No balance problems, No problem reported Psychiatric: No depression symptoms, No anhedonism, No anxiety, No insomnia , No substance abuse, No problem reported Endocrine: No fatigue, No excessive thirst, No excessive urination, No problem reported Hematologic / Lymphatic: No abnormal bleeding/bruising, No clotting problems , No swollen lymph nodes, No night sweats, No problem reported Integumentary: No rash, No itch, No new/changing skin lesions, No color change, No bleeding, No problem reported Physical Exam: General Appearance: WD/WN, no apparent distress Eyes: normal inspection, EOMI, sclerae normal ENT: normal ENT inspection, hearing grossly normal, pharynx normal Neck: supple, no adenopathy, no JVD, trachea midline Respiratory/Chest: chest non-tender, lungs clear, normal breath sounds, no respiratory distress, no accessory muscle use Cardiovascular: regular rate, rhythm, no edema, no gallop, no JVD, no murmur , normal peripheral pulses Abdomen / GI: normal bowel sounds, non tender, soft, no organomegaly Extremities: normal inspection, no calf tenderness, normal capillary refill , no pedal edema, normal range of motion, non-tender, pelvis stable Neurologic/Psychiatric: 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 as tested, no motor/sensory deficits , alert, normal mood/affect, normal reflexes, oriented x 3 Skin: normal color, warm/dry, no rash Lymphatic: no adenopathy Hospital Course This is an 86 yo f with a h/o TIA, HTN, epilepsy that presents to us with expressive aphasia/ hypertensive urgency concerning for TIA vs stroke TIA with expressive aphasia, symptoms resolved, no stroke on MRI - no arrhythmia on telemetry - MRI brain - no ischemic stroke - MRA head and neck normal - echo normal - neurology recommends changing aspirin to Plavix 75mg daily - discussed statin therapy, patient refuses Hypertensive urgency - due to TIA, BP up transiently - after being admitted to the floor, blood pressure well controlled - continue Diltiazem at prior dosing Epilepsy - some concern that maybe her symptoms due to partial seizure - Dr. Kc recommends increasing Keppra to 750mg BID, new prescription provided - recommend outpatient EEG, patient unsure if she wants to get one, will talk with her PCP Hypothyroidism - Synthroid 25 mcg cont DVT Prophylaxis FULL CODE Total Time Spent: Greater than 30 minutes This includes examination of the patient, discharge planning, medication reconciliation, and communication with other providers. Discharge Instructions Please refer to the electronic Patient Visit Report (Discharge Instructions) for additional information. Follow-Up Dr. Nielson this week Dr. Kc in neurology clinic in one month Additional Copies To Harjeet Kc M.D.; Rehan Nielson M.D.
[2017-07-01] MEDS ORDERED: LEVE500T13 PO (12:39)
--- NOTE | 2017-07-01 12:44 | Pharmacy Progress Note ---
Pharmacist Post D/C Phone Note Date of phone call: July 01, 2017. Individual with whom pharmacist spoke to: Patient The following questions were reviewed during the phone call with responses listed below each: Can you tell me the medications that you are currently taking as well as when and how you take each medication? - Medications Dose Route/Sig Max Daily Dose Days Date Category Keppra (Levetiracetam) 500 Mg Tab 750 Mg PO BID 07/01/17 Reported Clopidogrel (Clopidogrel Bisulfate) 75 Mg Tab 75 Mg PO QAM 06/28/17 Rx Levsin (Hyoscyamine Sulfate) 0.125 Mg Tab 0.125 Mg PO DIRECTED PRN 11/19/15 Reported Flonase Allergy Relief (Fluticasone Propionate (Nasal)) 50 Mcg/Act Spr 2 Sprays STEPHANIE QAM PRN 11/19/15 Reported Tiazac (Diltiazem HCl) 120 Mg Capcr 120 Mg PO QAM 11/19/15 Reported Cosopt Oph (Dorzolamide Hcl-Timolol Maleat) 1 Martha Martha 1 Drops OPB BID 03/14/15 Reported Calcium 600 (Calcium Carbonate) 600 Mg Tab 1,200 Mg PO BID 01/14/15 Reported Levothyroxine Sodium 25 Mcg Tab 1 Tab PO QAM 90 01/14/15 Reported When have you missed any doses of your medications? - No missed doses What side effects are you having from your medications? - None, no bruising/bleeding What questions do you have about your medications? - None What problems are you having obtaining your medications? - None; was able to get new prescriptions from [place] on Thursday. They only carry the brand 500 mg tablet so they filled this strength for her 750 mg dose. They confirmed with the company that the tablet can be split so patient is splitting her 500 mg tablet. When is your next appointment with your primary care doctor? - Saw Dr. Nielson yesterday; f/u with neuro on July 28 As per the Pharmacist Discharge Counseling for Stroke Patients Protocol, this phone call has been completed within 72 hours of discharge. Thank you for allowing us to be involved in the care of this patient.
== END 2017-06-28 14:20 | disposition other institution (70) ==
LOC: C.EDB 22:32 → C.2T 06-28 00:25 → ENRESERV 06-28 00:39
PROVIDERS: ADMIT Student in an Organized Health Care Education/Training Program; ATTEND Internal Medicine
DX: G45.9 Transient cerebral ischemic attack, unspecified (principal); F80.1 Expressive language disorder; I10 Essential (primary) hypertension; R41.0 Disorientation, unspecified; G40.909 Epilepsy, unspecified, not intractable, without status epilepticus; I16.0 Hypertensive urgency; E03.9 Hypothyroidism, unspecified; Z79.82 Long term (current) use of aspirin; Z86.73 Personal history of transient ischemic attack (TIA), and cerebral infarction without residual deficits; Z88.8 Allergy status to other drugs, medicaments and biological substances

== ENCOUNTER 2017-09-18 15:27 | Inpatient (IN) | payer BC, OTHER ==
[~2017-09-18] VITALS: Ht 154.9 cm; Wt 52.9 kg
[~2017-09-18 15:27] MED LIST changes: -ASPI81TA28 PO; -LEVE250T PO; +LEVE500T13 PO; +PLV75 PO
[2017-09-18] MEDS ORDERED: SODIUM CHLORIDE 0.9% 1000ML 1,000 ML IV SCH (15:48)
[2017-09-18] MEDS ORDERED: LEVETIRACETAM IV 1,000 MG in DEXTROSE 5% 100ML 100 ML IV ONE (16:00)
--- NOTE | 2017-09-18 16:01 | DIAGNOSTIC IMAGING REPORT ---
CT SCAN OF THE BRAIN WITHOUT IV CONTRAST CLINICAL HISTORY: Strokelike symptoms. COMPARISON STUDY: CT of the brain dated 06/27/2017. TECHNIQUE: Unenhanced axial CT scan of the brain is performed from the vertex to the skull base. A dose lowering technique was utilized adhering to the principles of ALARA. CT DOSE: 537.48 mGy.cm FINDINGS: Brain parenchyma: There are age-related involutional changes noting mild subcortical and periventricular microangiopathic change. There is no hemorrhage, mass effect, or evidence of acute territorial ischemia by CT criteria. Callahan-white matter is preserved. No extra-axial fluid collection is seen. Ventricles, sulci, cisterns: Prominent secondary to involutional change. Intracranial vasculature: There is atherosclerotic calcification of the cavernous carotid and vertebral arteries. Calvarium: Unremarkable. Sinuses and mastoids: The visualized paranasal sinuses are clear. The mastoid air cells are well pneumatized. Orbits: The bony orbits are grossly intact. There are bilateral ocular lens implants. IMPRESSION: There is no hemorrhage, mass effect, or evidence of acute territorial ischemia by CT criteria. Electronically signed by: Sanjay Salas M.D. 09/18/2017 3:59 PM Dictated Date/Time: 09/18/2017 3:57 PM
[2017-09-18 16:33] LABS: HEMATOCRIT 39.7 % (37-47); HEMOGLOBIN 13.5 g/dL (12.0-16.0); MEAN CELL VOLUME 95.7 fL (80-100); MEAN CORPUSCULAR HEMOGLOBIN 32.5 pg (25-34); MEAN PLATELET VOLUME 12.2 fL (7.4-10.4); PLATELET COUNT 247 K/uL (130-400); RED CELL DISTRIBUTION WIDTH CV 14.3 % (11.5-14.5); RED CELL DISTRIBUTION WIDTH SD 50.4 fL (36.4-46.3); WHITE BLOOD COUNT 24.77 K/uL (4.8-10.8)
[2017-09-18 16:42] LABS: PTT PATIENT 26.6 SECONDS (21.0-31.0)
[2017-09-18 17:06] LABS: BASO % 0.2 %; BASO ABS # 0.04 K/uL (0-0.2); BLOOD UREA NITROGEN 15 mg/dl (7-18); CALCIUM 8.6 mg/dl (8.5-10.1); CARBON DIOXIDE 24 mmol/L (21-32); CKMB < 1.0 ng/ml (0.5-3.6); CREATININE 0.81 mg/dl (0.60-1.20); EOS % 0.1 %; EOS ABS # 0.02 K/uL (0-0.5); GLUCOSE 107 mg/dl (70-99); IG# 0.08 K/uL (0.00-0.02); LYMPH % 7.9 %; LYMPH ABS # 1.96 K/uL (1.2-3.4); MONO ABS # 1.99 K/uL (0.11-0.59); NEUT % 83.5 %; NEUT ABS # 20.68 K/uL (1.4-6.5); POTASSIUM 3.7 mmol/L (3.5-5.1); SODIUM 134 mmol/L (136-145)
[2017-09-18] MEDS ORDERED: FLUT0.15 NAE (17:10)
[2017-09-18] MEDS ORDERED: HYOS1TAB UT (17:10)
[2017-09-18] MEDS ORDERED: LEVE250T PO (17:10)
[2017-09-18] MEDS ORDERED: CLOP1TAB15 PO (17:10)
[2017-09-18] MEDS ORDERED: LEVE500T13 PO (17:10)
[2017-09-18] MEDS ORDERED: FLUO0.0122 OTB (17:10)
[2017-09-18] MEDS ORDERED: DORZ1SOL5 OPB (17:11)
[2017-09-18] MEDS ORDERED: DILT120C67 PO (17:11)
[2017-09-18] MEDS ORDERED: LEVO25TA5 PO (17:11)
--- NOTE | 2017-09-18 17:35 | DIAGNOSTIC IMAGING REPORT ---
SINGLE VIEW CHEST CLINICAL HISTORY: Pneumonia FINDINGS: An AP, portable, upright chest radiograph is compared to study dated 06/27/2017. The examination is degraded by portable technique and patient rotation. The heart is top normal for projection and there is atherosclerotic calcification of the thoracic aorta. There is elevation of left hemidiaphragm and bibasilar atelectasis. Patchy airspace consolidation is seen in the right midlung. No large pleural effusion or pneumothorax is seen. The skeletal structures are osteopenic. The bony thorax is grossly intact. IMPRESSION: There is patchy airspace consolidation the right midlung, typical in appearance for pneumonia. Radiographic follow-up to resolution is recommended. Electronically signed by: Sanjay Salas M.D. 09/18/2017 5:33 PM Dictated Date/Time: 09/18/2017 5:32 PM
[2017-09-18] MEDS ORDERED: NSS + 20MEQ KCL 1000ML 1,000 ML IV SCH (18:27)
[2017-09-18] MEDS ORDERED: PIPERACILL/TAZOBAC CONSULT ACTIVE PRN (18:30)
[2017-09-18] MEDS ORDERED: VANCOMYCIN CONSULT ACTIVE PRN (18:30)
[2017-09-18] MEDS ORDERED: ONDANSETRON INJ 2 MG/ML 2 ML VIAL IV PRN ×2 (18:30)
[2017-09-18] MEDS ORDERED: ACETAMINOPHEN IV 100 ML IV PRN (18:30)
[2017-09-18] MEDS ORDERED: HYOSCYAMINE SULFATE 0.125 MG SL TAB UT PRN (18:45)
[2017-09-18] MEDS ORDERED: ACETAMINOPHEN 325 MG TAB PO PRN (18:45)
[2017-09-18] MEDS ORDERED: IPRATROPIUM BROMIDE NEB SOLN 0.02% 2.5 ML VIAL INH PRN (19:00)
[2017-09-18] MEDS ORDERED: LEVALBUTEROL 1.25MG/0.5ML NEB INH PRN (19:00)
--- NOTE | 2017-09-18 19:42 | History and Physical ---
History & Physical Date & Time of Service: Sep 18, 2017 at 19:42 Chief Complaint: Seizure Primary Care Physician: Rehan Nielson M.D. History of Present Illness Source: patient, hospital records The patient is an 87-year-old female who presents to the emergency department with complaint of a seizure that occurred this morning, with symptoms of her not being able to get words out. Her is unsure if she is returned to her baseline but reports is been with her all day, and has had no further episodes. Her last seizure was 2 years ago, but she did have a recent admission to the hospital here in June due to a fascia. Routine seizure medications including Keppra 750 mg p.o. twice daily, that she did not take this morning. Past Medical/Surgical History Medical Problems: (1) Chest pain (2) Confusion (3) Epilepsy (4) Expressive aphasia (5) Hypertensive urgency (6) Pneumonia involving right lung (7) Precordial chest pain (8) Right radial fracture Family History Cancer Social History Smoking Status: Never Smoker Smokeless Tobacco Use: No Alcohol Use: none Drug Use: none Marital Status: Housing status: lives with significant other Occupational Status: retired Immunizations History of Influenza Vaccine: Unknown History of Tetanus Vaccine?: Unknown History of Pneumococcal: Unknown History of Hepatitis B Vaccine: Unknown Allergies Coded Allergies: Phenobarbital (Verified Allergy, Severe, HIVES, 09/18/17) Phenytoin (Verified Allergy, Severe, HIVES, 09/18/17) Escitalopram (Unverified Adverse Reaction, Intermediate, DIARRHEA, 09/18/17 ) Home Medications Scheduled Clopidogrel (Plavix), 75 MG PO DAILY Diltiazem Hcl Extended Release (Diltiazem Hcl Er), 120 MG PO DAILY Dorzolamide Hcl-Timolol Maleat (Cosopt Pf), 1 DROP OPB BID Fluocinolone Acetonide (Otic) (Dermotic), 2 DROPS OTB 3XWK Fluticasone Propionate (Nasal) (Flonase Allergy Relief), 2 SPRAYS STEPHANIE DAILY Levetiracetam (Keppra), 250 MG PO BID Levetiracetam (Keppra), 500 MG PO BID Levothyroxine Sodium (Levothyroxine Sodium), 25 MCG PO DAILY Scheduled PRN Hyoscyamine Sulfate (Levsin), 0.125 MG UT DAILY PRN for LOOSE BOWELS/ABDOMINAL CRAMPS Review of Systems The patient denies chest pain, palpitations, shortness of breath, dyspnea on exertion, cough, lower extremity swelling, sore throat, fevers, chills, sweats, weight change, fatigue, nausea, vomiting, diarrhea , constipation, abdominal pain, pelvic pain, blood in urine or stool, dysuria, urinary frequency or urgency, lightheadedness , dizziness, headache, rash, abnormal bruising or bleeding, imbalance, focal weakness, numbness or tingling in arms or legs, generalized arthralgias or myalgias, back or neck pain, or night sweats. The review of systems is otherwise negative other than for that already noted above, and at least 10 systems have been reviewed. Physical Exam Vital Signs Date Time Temp Pulse Resp B/P (MAP) Pulse Ox O2 Delivery O2 Flow Rate FiO2 09/18/17 19:33 88 21 176/88 96 09/18/17 18:14 37.6 96 22 157/76 95 Room Air 09/18/17 17:02 83 21 138/71 94 Room Air 09/18/17 16:07 96 Room Air 09/18/17 15:41 84 09/18/17 15:38 37.6 81 22 139/58 96 Room Air The patient is awake, alert and oriented 3, normocephalic and atraumatic, lying in bed and in no acute distress. HEENT--PERRL, EOMI, mucous membranes and oropharynx dry. Neck--supple. No JVD. No bruits. Thyroid normal, trachea midline, no adenopathy. Heart--normal S1 and S2. No murmurs, rubs or gallops. Lungs--crackles at right base, no respiratory distress, no accessory muscle use. Abdomen--normal bowel sounds and soft. Nontender. Nondistended, no hernias or masses, no organomegaly. Extremities--no cyanosis or clubbing. No edema. There are good distal pulses b/ l. Dermatologic--normal skin turgor, normal color, no abnormal lymph nodes, no rash. Neurologic--cranial nerves II through XII grossly intact. Rheumatologic--normal range of motion. Psychiatric--normal affect. Diagnostics Laboratory Results Results Past 24 Hours Test 09/18/17 16:05 09/18/17 16:07 09/18/17 17:36 Range/Units Bedside Glucose 121 70-90 mg/dl White Blood Count 24.77 4.8-10.8 K/uL Red Blood Count 4.15 4.2-5.4 M/uL Hemoglobin 13.5 12.0-16.0 g/dL Hematocrit 39.7 37-47 % Mean Corpuscular Volume 95.7 80-100 fL Mean Corpuscular Hemoglobin 32.5 25-34 pg Mean Corpuscular Hemoglobin Concent 34.0 32-36 g/dl Platelet Count 247 130-400 K/uL Mean Platelet Volume 12.2 7.4-10.4 fL Neutrophils (%) (Auto) 83.5 % Lymphocytes (%) (Auto) 7.9 % Monocytes (%) (Auto) 8.0 % Eosinophils (%) (Auto) 0.1 % Basophils (%) (Auto) 0.2 % Neutrophils # (Auto) 20.68 1.4-6.5 K/uL Lymphocytes # (Auto) 1.96 1.2-3.4 K/uL Monocytes # (Auto) 1.99 0.11-0.59 K/uL Eosinophils # (Auto) 0.02 0-0.5 K/uL Basophils # (Auto) 0.04 0-0.2 K/uL RDW Standard Deviation 50.4 36.4-46.3 fL RDW Coefficient of Variation 14.3 11.5-14.5 % Immature Granulocyte % (Auto) 0.3 % Immature Granulocyte # (Auto) 0.08 0.00-0.02 K/uL Prothrombin Time 10.0 9.0-12.0 SECONDS Prothromb Time International Ratio 1.0 0.9-1.1 Activated Partial Thromboplast Time 26.6 21.0-31.0 SECONDS Partial Thromboplastin Ratio 1.0 Sodium Level 134 136-145 mmol/L Potassium Level 3.7 3.5-5.1 mmol/L Chloride Level 104 98-107 mmol/L Carbon Dioxide Level 24 21-32 mmol/L Anion Gap 6.0 3-11 mmol/L Blood Urea Nitrogen 15 7-18 mg/dl Creatinine 0.81 0.60-1.20 mg/dl Est Creatinine Clear Calc Drug Dose 38.9 ml/min Estimated GFR () 76.2 Estimated GFR (Non- 65.8 BUN/Creatinine Ratio 18.7 10-20 Random Glucose 107 70-99 mg/dl Calcium Level 8.6 8.5-10.1 mg/dl Magnesium Level 2.7 1.8-2.4 mg/dl Total Creatine Kinase 85 26-192 U/L Creatine Kinase MB < 1.0 0.5-3.6 ng/ml Creatine Kinase MB Ratio 0-3.0 Troponin I < 0.015 0-0.045 ng/ml Urine Color YELLOW Urine Appearance CLEAR CLEAR Urine pH >= 9.0 4.5-7.5 Urine Specific [place] 1.008 1.000-1.030 Urine Protein NEG NEG Urine Glucose (UA) NEG NEG Urine Ketones NEG NEG Urine Occult Blood NEG NEG Urine Nitrite NEG NEG Urine Bilirubin NEG NEG Urine Urobilinogen NEG NEG Urine Leukocyte Esterase SMALL NEG Urine WBC (Auto) 5-10 0-5 /hpf Urine RBC (Auto) 0-4 0-4 /hpf Urine Hyaline Casts (Auto) 0 0-5 /lpf Urine Epithelial Cells (Auto) 10-20 0-5 /lpf Urine Bacteria (Auto) NEG NEG Diagnostic Radiology Patient Name: CARLYLE KING Unit Number: [id number] Dictated: 09/18/171556 Transcribed: 09/18/171556 EV Printed Date/Time: [~ rep prt dt]/[~ rep prt tm] [~ rep ct labl] - [~ rep ct ivnm] [facility] [place] [address] Dictated: 09/18/171556 Transcribed: 09/18/171556 EV Printed Date/Time: [~ rep prt dt]/[~ rep prt tm] [~ rep ct labl] - [~ rep ct ivnm] [~ rep ct add3]] CT SCAN OF THE BRAIN WITHOUT IV CONTRAST CLINICAL HISTORY: Strokelike symptoms. COMPARISON STUDY: CT of the brain dated 06/27/2017. TECHNIQUE: Unenhanced axial CT scan of the brain is performed from the vertex to the skull base. A dose lowering technique was utilized adhering to the principles of ALARA. CT DOSE: 537.48 mGy.cm FINDINGS: Brain parenchyma: There are age-related involutional changes noting mild subcortical and periventricular microangiopathic change. There is no hemorrhage, mass effect, or evidence of acute territorial ischemia by CT criteria. Callahan-white matter is preserved. No extra-axial fluid collection is seen. Ventricles, sulci, cisterns: Prominent secondary to involutional change. Intracranial vasculature: There is atherosclerotic calcification of the cavernous carotid and vertebral arteries. Calvarium: Unremarkable. Sinuses and mastoids: The visualized paranasal sinuses are clear. The mastoid air cells are well pneumatized. Orbits: The bony orbits are grossly intact. There are bilateral ocular lens implants. IMPRESSION: There is no hemorrhage, mass effect, or evidence of acute territorial ischemia by CT criteria. Electronically signed by: Sanjay Salas M.D. 09/18/2017 3:59 PM Dictated Date/Time: 09/18/2017 3:57 PM The status of this report is Signed. Draft = Not yet reviewed or approved by Radiologist. Signed = Reviewed and approved by Radiologist. <AttendingPhy></AttendingPhy> <FamilyPhy>Rehan Nielson M.D.</FamilyPhy> < PrimaryPhy>Rehan Nielson M.D.</PrimaryPhy> <UnitNumber>[id number]</UnitNumber > <VisitNumber>[id number]</VisitNumber> <PatientName>CARLYLE KING Mario</PatientName > <DateOfBirth>1930</DateOfBirth> <Location>C.EDB</Location> <ServiceDate> 09/18/17</ServiceDate> <MNE>ESINDI</MNE> <OrderingPhy>Radhames Chand MD</ OrderingPhy> <OrderingPhyMNE>f rep ord dr buchanan</OrderingPhyMNE> <DictatingPhyMNE> f rep dict dr buchanan</DictatingPhyMNE> <CCListMNE>f rep ct chanel</CCListMNE> < AdmittingPhyMNE>f pt admit dr buchanan</AdmittingPhyMNE> <AttendingPhyMNE>f pt attend dr buchanan</AttendingPhyMNE> <ConsultingPhyMNE>f pt consult dr buchanan</ConsultingPhyMNE> <FamilyPhyMNE>f pt fam dr buchanan</FamilyPhyMNE> <OtherPhyMNE>f pt other dr buchanan</OtherPhyMNE> < PrimaryPhyMNE>f pt prim care dr buchanan</PrimaryPhyMNE> <ReferringPhyMNE>f pt referring dr buchanan</ReferringPhyMNE> Patient Name: CARLYLE KING Unit Number: [id number] Dictated: 09/18/171731 Transcribed: 09/18/171731 EV Printed Date/Time: [~ rep prt dt]/[~ rep prt tm] [~ rep ct labl] - [~ rep ct ivnm] [facility] [place] [address] Dictated: 09/18/171731 Transcribed: 09/18/171731 EV Printed Date/Time: [~ rep prt dt]/[~ rep prt tm] [~ rep ct labl] - [~ rep ct ivnm] [~ rep ct add3]] SINGLE VIEW CHEST CLINICAL HISTORY: Pneumonia FINDINGS: An AP, portable, upright chest radiograph is compared to study dated 06/27/2017. The examination is degraded by portable technique and patient rotation. The heart is top normal for projection and there is atherosclerotic calcification of the thoracic aorta. There is elevation of left hemidiaphragm and bibasilar atelectasis. Patchy airspace consolidation is seen in the right midlung. No large pleural effusion or pneumothorax is seen. The skeletal structures are osteopenic. The bony thorax is grossly intact. IMPRESSION: There is patchy airspace consolidation the right midlung, typical in appearance for pneumonia. Radiographic follow-up to resolution is recommended. Electronically signed by: Sanjay Salas M.D. 09/18/2017 5:33 PM Dictated Date/Time: 09/18/2017 5:32 PM The status of this report is Signed. Draft = Not yet reviewed or approved by Radiologist. Signed = Reviewed and approved by Radiologist. <AttendingPhy></AttendingPhy> <FamilyPhy>Rehan Nielson M.D.</FamilyPhy> < PrimaryPhy>Rehan Nielson M.D.</PrimaryPhy> <UnitNumber>[id number]</UnitNumber > <VisitNumber>[id number]</VisitNumber> <PatientName>CARLYLE KING</PatientName > <DateOfBirth>1930</DateOfBirth> <Location>C.EDB</Location> <ServiceDate> 09/18/17</ServiceDate> <MNE>ESINDI</MNE> <OrderingPhy>Radhames Chand MD</ OrderingPhy> <OrderingPhyMNE>f rep ord dr buchanan</OrderingPhyMNE> <DictatingPhyMNE> f rep dict dr buchanan</DictatingPhyMNE> <CCListMNE>f rep ct mne</CCListMNE> < AdmittingPhyMNE>f pt admit dr buchanan</AdmittingPhyMNE> <AttendingPhyMNE>f pt attend dr buchanan</AttendingPhyMNE> <ConsultingPhyMNE>f pt consult dr buchanan</ConsultingPhyMNE> <FamilyPhyMNE>f pt fam dr buchanan</FamilyPhyMNE> <OtherPhyMNE>f pt other dr buchanan</OtherPhyMNE> < PrimaryPhyMNE>f pt prim care dr buchanan</PrimaryPhyMNE> <ReferringPhyMNE>f pt referring dr buchanan</ReferringPhyMNE> Patient Name: CARLYLE KING Unit Number: [id number] Dictated: 09/18/172158 Transcribed: 09/18/172158 JA Printed Date/Time: [~ rep prt dt]/[~ rep prt tm] [~ rep ct labl] - [~ rep ct ivnm] [facility] [place] [address] Dictated: 09/18/172158 Transcribed: 09/18/172158 Printed Date/Time: [~ rep prt dt]/[~ rep prt tm] [~ rep ct labl] - [~ rep ct ivnm] [~ rep ct add3]] MRI OF THE BRAIN WITHOUT AND WITH IV CONTRAST SEIZURE PROTOCOL CLINICAL HISTORY: Seizure activity. Headache. Confusion. COMPARISON STUDY: MRI of the brain June 28, [address] performed earlier today. TECHNIQUE: Utilizing a 1.5 Jodi magnet and dedicated coil, multiplanar, multiecho imaging of the brain was performed pre and postcontrast administration. IV administration of 6.5 mL of Gadavist contrast was uneventful. Thin cut coronal T2 imaging was performed according to seizure protocol. FINDINGS: There are no foci of restricted diffusion to suggest acute infarct. No acute intracranial hemorrhage, midline shift or mass effect is present. Ventricular system is stable. Basilar cisterns are patent. There are no extra-axial collections. Flow-voids for the major intracranial vessels are present. A 5 mm focus of enhancement within the mateo is unchanged since MRI of January 14, 2016. No additional sites of abnormal parenchymal enhancement are present. Calvarial signal is maintained. Orbits and sinuses are unremarkable. Numerous white matter T2 hyperintense foci are unchanged. IMPRESSION: 1. No acute intracranial findings. 2. No change in appearance of the brain. Stable 5 mm focus of enhancement within the mateo since MRI January 14, 2016. This favors a capillary telangiectasia. 3. Numerous white matter T2 hyperintense foci which likely reflect small vessel disease. Electronically signed by: Mckay Sood M.D. 09/18/2017 10:05 PM Dictated Date/Time: 09/18/2017 9:59 PM The status of this report is Signed. Draft = Not yet reviewed or approved by Radiologist. Signed = Reviewed and approved by Radiologist. <AttendingPhy>Timoteo Jimenes M.D.</AttendingPhy> <FamilyPhy>Rehan Nielson M.D.</FamilyPhy> <PrimaryPhy>Rehan Nielson M.D.</PrimaryPhy> <UnitNumber> [id number]</UnitNumber> <VisitNumber>[id number]</VisitNumber> <PatientName> CARLYLE KING</PatientName> <DateOfBirth>1930</DateOfBirth> <Location>C.2T< /Location> <ServiceDate>09/18/17</ServiceDate> <MNE>ESINDI</MNE> <OrderingPhy> Timoteo Jimenes M.D.</OrderingPhy> <OrderingPhyMNE>f rep ord dr buchanan</ OrderingPhyMNE> <DictatingPhyMNE>f rep dict dr buchanan</DictatingPhyMNE> <CCListMNE> f rep ct mne</CCListMNE> <AdmittingPhyMNE>f pt admit dr buchanan</AdmittingPhyMNE> < AttendingPhyMNE>f pt attend dr buchanan</AttendingPhyMNE> <ConsultingPhyMNE>f pt consult dr buchanan</ConsultingPhyMNE> <FamilyPhyMNE>f pt fam dr buchanan</FamilyPhyMNE> <OtherPhyMNE>f pt other dr buchanan</OtherPhyMNE> < PrimaryPhyMNE>f pt prim care dr buchanan</PrimaryPhyMNE> <ReferringPhyMNE>f pt referring dr buchanan</ReferringPhyMNE> EKG CARLYLE KING ID:[id number] 18-SEP-2017 16:19:10 [facility] Normal sinus rhythm Nonspecific ST abnormality Abnormal ECG When compared with ECG of 27-JUN-2017 23:08, No significant change was found Confirmed by RUPALI BROWNE ([id number]) on 09/18/2017 8:56:43 PM 25mm/s 10mm/mV 150Hz 8.0 SP2 12SL 241 CRAIG: 0 Referred by: UNKNOWN Confirmed By: RUPALI BROWNE Vent. rate 81 BPM LA interval 150 ms QRS duration 86 ms QT/QTc 402/466 ms P-R-T axes 37 44 53 1930 (87 yr) Female 61in 1lb Room: Loc:15 Roll Reclaimer:GENNARO OLIVEROS Impression Assessment and Plan Seizure activity with known seizure disorder-- Admit to monitored bed. Given 1000 mg IV Keppra per neurology recommendation. Present Keppra dose is 750 mg p.o. twice daily, and will increase to 1000 mg p.o. twice daily starting tomorrow morning. Brain MRI primarily showed small vessel disease. We will order repeat EEG. Neurochecks per protocol. Increased activity may have been brought on by lung infection. NSS + KCl 20 mEq at 75 mL's per hour. Pneumonia involving right lung-- Question possibility of aspiration. Vancomycin IV per pharmacokinetic monitoring Zosyn 3.375 mg IV every 8 hours Duonebs every 4 hours while awake and every 2 hours when necessary. Solu-Medrol 30 mg IV every 8 hours Guaifenesin extended release 600 mg by mouth twice a day Nasal cannula oxygen titrate to keep pulse ox greater than or equal to 92% Sputum Gram stain and culture. Cerebrovascular disease/hypertension-- Continue Plavix 75 mg daily and Cardizem CD 180 mg p.o. daily. Hypothyroidism-- Continue levothyroxine sodium 25 mcg p.o. daily. Glaucoma-- Continue Cosopt. Advanced Directives Existing Living Will: No Existing Power of Construction Equipment Operator: No Resuscitation Status VTE Prophylaxis Will order VTE Prophylaxis: Yes
[2017-09-18] MEDS ORDERED: GADAVIST IV PRN (20:30)
[2017-09-18 20:35] VITALS: BP 156/86; PULSE 96; TEMP 36.8; O2SAT 95; Ht 154.9 cm; Wt 52.9 kg
[2017-09-18] MEDS ORDERED: VANCOMYCIN IV 1,250 MG in SODIUM CHLORIDE 0.9% 250ML 250 ML IV STA (20:42)
[2017-09-18] MEDS ORDERED: PIPERACILL/TAZOBAC IV 3.375 GM in DEXTROSE 5% 100ML 100 ML IV ONE (20:43)
[2017-09-18] MEDS: LEVALBUTEROL 1.25MG/0.5ML NEB INH SCH (20:49)
[2017-09-18] MEDS: IPRATROPIUM BROMIDE NEB SOLN 0.02% 2.5 ML VIAL INH SCH (20:49)
[2017-09-18 20:50] VITALS: PULSE 84; O2SAT 96
[2017-09-18] MEDS ORDERED: LEVALBUTEROL/IPRATROPIUM NEB INH SCH (21:00)
[2017-09-18] MEDS: NSS + 20MEQ KCL 1000ML 1,000 ML IV SCH (21:10)
[2017-09-18] MEDS: METHYLPREDNISOLONE IV 30 MG in SYRINGE 0 ML IV SCH (21:11)
[2017-09-18] MEDS: GUAIFENESIN 600 MG TABCR PO SCH (21:11)
[2017-09-18] MEDS: LEVETIRACETAM 500 MG TAB PO SCH (21:11)
--- NOTE | 2017-09-18 21:15 | Pharmacy Progress Note ---
Pharmacy Abx Dose Short Note Date of Service Sep 18, 2017. Assessment & Plan Assessment 87 year old female receiving IV Vancomycin and Zosyn for treatment of pneumonia * Very limited information regarding patient at this time as no H&P * Most recent sCr = 0.81 mg/dL with estimated CrCl ~39 mL/min. Estimated pharmacokinetic parameters: * Ke ~0.037/hr, T1/2 ~18.7 hrs Plan Vancomycin * Give Vancomycin 1250mg (~25mg/kg) IV x 1 as a loading dose * Initiate Vancomycin 750mg (~15mg/kg) IV q24 as maintenance on 09/19 @ 2000 * Goal trough level for pneumonia : 15 to 20 mcg/mL * Trough level ordered for: 09/20 @ 1930 (only prior to 2nd dose and therefore not reflective of steady state, but would like to assess dosing regimen earlier due to age and renal function) Zosyn * Give Zosyn 3.375g IV x 1 over 30 minutes as loading dose, then 3.375g IV q8 ( extended infusion over 4 hours) for CrCl >20 mL/min Pharmacy will continue to follow and will adjust dose/frequency as necessary. Thank you.
--- NOTE | 2017-09-18 22:07 | DIAGNOSTIC IMAGING REPORT ---
MRI OF THE BRAIN WITHOUT AND WITH IV CONTRAST SEIZURE PROTOCOL CLINICAL HISTORY: Seizure activity. Headache. Confusion. COMPARISON STUDY: MRI of the brain June 28, [address] performed earlier today. TECHNIQUE: Utilizing a 1.5 Jodi magnet and dedicated coil, multiplanar, multiecho imaging of the brain was performed pre and postcontrast administration. IV administration of 6.5 mL of Gadavist contrast was uneventful. Thin cut coronal T2 imaging was performed according to seizure protocol. FINDINGS: There are no foci of restricted diffusion to suggest acute infarct. No acute intracranial hemorrhage, midline shift or mass effect is present. Ventricular system is stable. Basilar cisterns are patent. There are no extra-axial collections. Flow-voids for the major intracranial vessels are present. A 5 mm focus of enhancement within the mateo is unchanged since MRI of January 14, 2016. No additional sites of abnormal parenchymal enhancement are present. Calvarial signal is maintained. Orbits and sinuses are unremarkable. Numerous white matter T2 hyperintense foci are unchanged. IMPRESSION: 1. No acute intracranial findings. 2. No change in appearance of the brain. Stable 5 mm focus of enhancement within the mateo since MRI January 14, 2016. This favors a capillary telangiectasia. 3. Numerous white matter T2 hyperintense foci which likely reflect small vessel disease. Electronically signed by: Mckay Sood M.D. 09/18/2017 10:05 PM Dictated Date/Time: 09/18/2017 9:59 PM
--- NOTE | 2017-09-18 23:18 | EMERGENCY ROOM VISIT NOTE ---
History Report prepared by Drew: Zach Wilkinson Under the Supervision of: Dr. Radhames Chand M.D. First contact with patient: 15:37 Chief Complaint: SEIZURE Stated Complaint: SEIZURE History of Present Illness The patient is a 87 year old female who presents to the Emergency Room with complaints of a seizure. The patient's states the seizure occurred this morning but cannot confirm onset. He notes her seizure episode is she is unable to get words out. He states her seizure was her typical type this morning. The is unsure if the patient has "returned to baseline" but states he has been with her all day. Last time the patient had a similar seizure was approximately 2 years ago, although she was admitted for aphasia in June. She does take Keppra 750 mg twice a day but did not take her dose since morning. She denies skipping any other doses. She denies any pain anywhere in her body. She denies headache. Source of History: spouse/significant other History Limited By: aphasia Onset: Since this morning Position: other (Brain) Quality: other (Possible seizure) Timing: constant Associated Symptoms: No LOC, No fevers, No chills, No chest pain, No SOB, No nausea, No vomiting Review of Systems See HPI for pertinent positives & negatives. A total of 10 systems reviewed and were otherwise negative. Constitutional: No fever, No chills Abdomen: No pain, No nausea, No vomiting, No diarrhea Neurologic: + problem reported (seizure) Past Medical & Surgical Medical Problems: (1) Chest pain (2) Epilepsy (3) Pneumonia involving right lung Family History Cancer Social History Smoking Status: Never Smoker Drug Use: none Marital Status: Occupation Status: retired Current/Historical Medications Scheduled Clopidogrel (Plavix), 75 MG PO DAILY Diltiazem Hcl Extended Release (Diltiazem Hcl Er), 120 MG PO DAILY Dorzolamide Hcl-Timolol Maleat (Cosopt Pf), 1 DROP OPB BID Fluocinolone Acetonide (Otic) (Dermotic), 2 DROPS OTB 3XWK Fluticasone Propionate (Nasal) (Flonase Allergy Relief), 2 SPRAYS STEPHANIE DAILY Levetiracetam (Keppra), 250 MG PO BID Levetiracetam (Keppra), 500 MG PO BID Levothyroxine Sodium (Levothyroxine Sodium), 25 MCG PO DAILY Scheduled PRN Hyoscyamine Sulfate (Levsin), 0.125 MG UT DAILY PRN for LOOSE BOWELS/ABDOMINAL CRAMPS Allergies Coded Allergies: Phenobarbital (Verified Allergy, Severe, HIVES, 09/18/17) Phenytoin (Verified Allergy, Severe, HIVES, 09/18/17) Escitalopram (Unverified Adverse Reaction, Intermediate, DIARRHEA, 09/18/17 ) Physical Exam Vital Signs Date Time Temp Pulse Resp B/P (MAP) Pulse Ox O2 Delivery O2 Flow Rate FiO2 09/18/17 18:14 37.6 96 22 157/76 95 Room Air 09/18/17 17:02 83 21 138/71 94 Room Air 09/18/17 16:07 96 Room Air 09/18/17 15:41 84 09/18/17 15:38 37.6 81 22 139/58 96 Room Air Physical Exam Constitutional: Vital signs reviewed. Eyes: Pupils are equal round reactive to light. Conjunctiva are noninjected. ENT: Pharynx is clear without erythema or exudate. Mucous membranes are moist. Neck supple without meningeal signs. Respiratory: Clear to auscultation bilaterally. Breath sounds are equal bilaterally. Cardiovascular: Regular rate and rhythm. No rubs or gallops. GI: Soft, nondistended and nontender. Bowel sounds are present. Musculoskeletal: No peripheral edema. No lower extremity tenderness. Integumentary: No cyanosis. Neurological: The patient is awake and alert. Cranial nerves II-XII are intact. Motor is 5 out of 5 all extremities. Sensation is intact to light touch all extremities. No pronator drift. No dysdiadochokinesis. No limb ataxia. Expressive aphagia. Patient was able to say "I am in the hospital" but not her name or date. Agnosia also noted on exam. Psychiatric: Unable to assess. Medical Decision & Procedures ER Provider Diagnostic Interpretation: CT SCAN OF THE BRAIN WITHOUT IV CONTRAST CLINICAL HISTORY: Strokelike symptoms. COMPARISON STUDY: CT of the brain dated 06/27/2017. TECHNIQUE: Unenhanced axial CT scan of the brain is performed from the vertex to the skull base. A dose lowering technique was utilized adhering to the principles of ALARA. CT DOSE: 537.48 mGy.cm FINDINGS: Brain parenchyma: There are age-related involutional changes noting mild subcortical and periventricular microangiopathic change. There is no hemorrhage, mass effect, or evidence of acute territorial ischemia by CT criteria. Callahan-white matter is preserved. No extra-axial fluid collection is seen. Ventricles, sulci, cisterns: Prominent secondary to involutional change. Intracranial vasculature: There is atherosclerotic calcification of the cavernous carotid and vertebral arteries. Calvarium: Unremarkable. Sinuses and mastoids: The visualized paranasal sinuses are clear. The mastoid air cells are well pneumatized. Orbits: The bony orbits are grossly intact. There are bilateral ocular lens implants. IMPRESSION: There is no hemorrhage, mass effect, or evidence of acute territorial ischemia by CT criteria. Laboratory Results 09/18/17 16:07 Red Blood Count 4.15, Mean Corpuscular Volume 95.7, Mean Corpuscular Hemoglobin 32.5, Mean Corpuscular Hemoglobin Concent 34.0, Mean Platelet Volume 12.2, Neutrophils (%) (Auto) 83.5, Lymphocytes (%) (Auto) 7.9, Monocytes (%) (Auto) 8.0, Eosinophils (%) (Auto) 0.1, Basophils (%) (Auto) 0.2, Neutrophils # (Auto) 20.68, Lymphocytes # (Auto) 1.96, Monocytes # (Auto) 1.99, Eosinophils # (Auto) 0.02, Basophils # (Auto) 0.04 09/18/17 16:07 Test 09/18/17 16:05 09/18/17 16:07 09/18/17 17:36 Bedside Glucose 121 mg/dl (70-90) White Blood Count 24.77 K/uL (4.8-10.8) Red Blood Count 4.15 M/uL (4.2-5.4) Hemoglobin 13.5 g/dL (12.0-16.0) Hematocrit 39.7 % (37-47) Mean Corpuscular Volume 95.7 fL (80-100) Mean Corpuscular Hemoglobin 32.5 pg (25-34) Mean Corpuscular Hemoglobin Concent 34.0 g/dl (32-36) Platelet Count 247 K/uL (130-400) Mean Platelet Volume 12.2 fL (7.4-10.4) Neutrophils (%) (Auto) 83.5 % Lymphocytes (%) (Auto) 7.9 % Monocytes (%) (Auto) 8.0 % Eosinophils (%) (Auto) 0.1 % Basophils (%) (Auto) 0.2 % Neutrophils # (Auto) 20.68 K/uL (1.4-6.5) Lymphocytes # (Auto) 1.96 K/uL (1.2-3.4) Monocytes # (Auto) 1.99 K/uL (0.11-0.59) Eosinophils # (Auto) 0.02 K/uL (0-0.5) Basophils # (Auto) 0.04 K/uL (0-0.2) RDW Standard Deviation 50.4 fL (36.4-46.3) RDW Coefficient of Variation 14.3 % (11.5-14.5) Immature Granulocyte % (Auto) 0.3 % Immature Granulocyte # (Auto) 0.08 K/uL (0.00-0.02) Prothrombin Time 10.0 SECONDS (9.0-12.0) Prothromb Time International Ratio 1.0 (0.9-1.1) Activated Partial Thromboplast Time 26.6 SECONDS (21.0-31.0) Partial Thromboplastin Ratio 1.0 Anion Gap 6.0 mmol/L (3-11) Est Creatinine Clear Calc Drug Dose 38.9 ml/min Estimated GFR () 76.2 Estimated GFR (Non- 65.8 BUN/Creatinine Ratio 18.7 (10-20) Calcium Level 8.6 mg/dl (8.5-10.1) Magnesium Level 2.7 mg/dl (1.8-2.4) Total Creatine Kinase 85 U/L (26-192) Creatine Kinase MB < 1.0 ng/ml (0.5-3.6) Creatine Kinase MB Ratio (0-3.0) Troponin I < 0.015 ng/ml (0-0.045) Urine Color YELLOW Urine Appearance CLEAR (CLEAR) Urine pH >= 9.0 (4.5-7.5) Urine Specific [place] 1.008 (1.000-1.030) Urine Protein NEG (NEG) Urine Glucose (UA) NEG (NEG) Urine Ketones NEG (NEG) Urine Occult Blood NEG (NEG) Urine Nitrite NEG (NEG) Urine Bilirubin NEG (NEG) Urine Urobilinogen NEG (NEG) Urine Leukocyte Esterase SMALL (NEG) Urine WBC (Auto) 5-10 /hpf (0-5) Urine RBC (Auto) 0-4 /hpf (0-4) Urine Hyaline Casts (Auto) 0 /lpf (0-5) Urine Epithelial Cells (Auto) 10-20 /lpf (0-5) Urine Bacteria (Auto) NEG (NEG) Medications Administered Medications (Trade) Dose Ordered Sig/[place] Route Start Time Stop Time Status Last Admin Dose Admin Sodium Chloride 1,000 ml @ 50 mls/hr Q20H IV 09/18/17 15:48 09/18/17 20:43 DC 09/18/17 16:05 50 MLS/HR Levetiracetam 1000 mg/Dextrose 110 ml @ 440 mls/hr ONE ONCE IV 09/18/17 16:00 09/18/17 16:14 DC 09/18/17 16:06 440 MLS/HR ECG Per My Interpretation Indication: other (neurological symptoms) Rate (beats per minute): 81 Rhythm: normal sinus Findings: other (no ST elevation, baseline artifcat limiting interpretation ) ED Course Rechecks: 1540: Stroke alert placed 1610: IV Keppra infusing, patient has no change in her symptoms. CT Head negative per Dr. Salas. 1705: Patient is much more verbal now and can name objects. She still has difficultly with some words including month and season but can name year. Keppra still infusing. Medical Decision This is an 87-year-old female presents with difficulty with her speech. Differential diagnosis includes seizure, status epilepticus, expressive aphasia , CVA, TIA. I did perform a limited focused review of portions of the patient' s old chart on the electronic medical record. The patient was admitted in June for possible TIA with expressive aphagia. Her Keppra was increased at discharge to 750mg BID. I did evaluate the patient as noted above. I did obtain history from the patient as well as her due to her aphasia. She is presenting with expressive aphasia which her states is typical for her prior seizure symptoms. She had similar symptoms when I admitted her in June but her MRI and MRA were negative at that for stroke. IV access was established. The patient was placed on a continuous music artist. A stroke alert was called. I did order and personally review the patient's 12-lead EKG and chest x-ray as described above. I did order and review the patient's blood work as noted in the electronic medical record. Her white blood cell count is elevated. She denies any fever. I did order a stat CT of the head. I did review the images myself as well as the radiology report as described above. I was concerned about status epilepticus and so I did treat her with IV Keppra 1 g. I did reassess her multiple times. Her expressive aphasia did improve significantly although she did not completely return to baseline. I did discuss the case with Dr. Kc of neurology. He did not recommend any additional medications and agrees with my plan for hospitalization. I did discuss case with the hospitalist and clinical case manager. Medication Reconcilliation Current Medication List: was personally reviewed by me Consults Consulting Physician: Dr. Kc Returned Call: [phone] At this time he doesn't believe the patient is actively seizing given symptom improvement. He does agree to admission. He doesn't object to Ativan, but doesn' t believe it is absolutely necessary. Additional Consults: Consulted Physician: Dr. Gordillo Returned Call: [phone] Additional Comments: Will come to ED to see patient Impression Primary Impression: Status epilepticus Additional Impression: Expressive aphasia Critical Care I have personally spent 35 minutes of critical care time in the direct management of this patient. This includes bedside care, interpretation of diagnostic studies, and testing, discussion with consultants, patient, and family members, and other required patient management activities. This 35 minutes is in excess of all separately billable procedures. Scribe Attestation The scribe's documentation has been prepared under my direct and personally reviewed by me in its entirety. I confirm that the note above accurately reflects all work, treatment, procedures, and medical decision making performed by me. Departure Information Dispostion Being Evaluated By Hospitalist Referrals Nicki Amado (PCP) Patient Instructions My [facility] Problem Qualifiers
[2017-09-19] VITALS (9 sets, daily range): BP systolic 107–148; BP diastolic 63–73; PULSE 77–96; TEMP 36.7–37.4; O2SAT 92–96
[2017-09-19] MEDS: PIPERACILL/TAZOBAC IV 3.375 GM in D5W 100ML IV SCH ×3 (02:16→17:56)
[2017-09-19] MEDS: LEVALBUTEROL 1.25MG/0.5ML NEB INH SCH ×4 (02:40→20:14)
[2017-09-19] MEDS: IPRATROPIUM BROMIDE NEB SOLN 0.02% 2.5 ML VIAL INH SCH ×4 (02:40→20:14)
[2017-09-19] MEDS: METHYLPREDNISOLONE IV 30 MG in SYRINGE 0 ML IV SCH ×2 (05:12→13:09)
[2017-09-19 05:44] LABS: HEMATOCRIT 38.5 % (37-47); HEMOGLOBIN 13.1 g/dL (12.0-16.0); MEAN CORPUSCULAR HEMOGLOBIN 32.7 pg (25-34); MEAN PLATELET VOLUME 11.9 fL (7.4-10.4); PLATELET COUNT 236 K/uL (130-400); RED CELL DISTRIBUTION WIDTH CV 14.5 % (11.5-14.5); RED CELL DISTRIBUTION WIDTH SD 51.1 fL (36.4-46.3); WHITE BLOOD COUNT 18.59 K/uL (4.8-10.8)
[2017-09-19] MEDS: LEVOTHYROXINE 25 MCG TAB PO SCH (06:02)
[2017-09-19 06:09] LABS: BASO % 0.1 %; BASO ABS # 0.01 K/uL (0-0.2); CREATININE 0.82 mg/dl (0.60-1.20); IG# 0.06 K/uL (0.00-0.02); LYMPH % 4.7 %; LYMPH ABS # 0.87 K/uL (1.2-3.4); MONO % 1.1 %; NEUT % 93.8 %; NEUT ABS # 17.45 K/uL (1.4-6.5)
[2017-09-19] MEDS: FLUTICASONE PROPIONATE NA SPR 16 GM BTL NAE SCH (07:59)
[2017-09-19] MEDS: GUAIFENESIN 600 MG TABCR PO SCH ×2 (07:59→19:50)
[2017-09-19] MEDS: LEVETIRACETAM 500 MG TAB PO SCH ×2 (08:00→19:50)
[2017-09-19] MEDS: DILTIAZEM HCL 120 MG EXT REL CAP PO SCH (08:01)
[2017-09-19] MEDS: CLOPIDOGREL BISULFATE 75 MG TAB PO SCH (08:01)
--- NOTE | 2017-09-19 09:39 | Neurology Consultation ---
Neurology Consultation Date of Consultation: Sep 19, 2017. Attending Physician: Timoteo Jimenes M.D. Primary Care Physician: Rehan Nielson M.D. Reason for Consultation: Suspected seizure History of Present Illness Source: patient, clinic records, hospital records The patient is an 87-year-old female who was known to me. She had presented to the hospital this past June with confusion and word-finding difficulty potentially consistent with either a TIA or partial complex seizure. The patient has a history of nocturnal seizures which began over 10 years ago. She had previously been evaluated by Dr. Onofre. The patient had a thorough neuro imaging evaluation during her hospitalization this past June including MRI of the brain and MR angiography of the head and neck. 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 An echocardiogram revealed mild left ventricular hypertrophy and grade 1 diastolic dysfunction and was otherwise unremarkable. An EEG was not completed at that time as I believe her admission took place over the weekend and the test would not have affected her management. Her Keppra dosage was increased to 750 milligrams twice daily at that time and her aspirin was discontinued in favor of Plavix 75 milligrams per day. The patient was seen for a follow-up appointment in the Neurology Clinic on July 28, 2017. She was seen by our physician's construction project assistant, Pricilla Trotter. No changes were made in this patient's medication regimen at that time. An outpatient EEG was recommended although the patient declined. The patient had not had any additional episodes since that time. However, she presented to the emergency department yesterday for further assessment of a subtle alteration in her mental status with some associated speech difficulty potentially worrisome for a nocturnal seizure occurring the night before. In fact, upon further questioning of the patient, she admits that she awoke in the middle of the night with generalized shaking. The episode apparently awoke her as well. It sounds like neither the patient nor her were convinced that she had a seizure, however. She eventually went back to bed but awoke the following morning in a subtly altered fashion with slight confusion and word-finding difficulty. Her apparently spent most of the day with her yesterday and became increasingly concerned regarding her persistent alteration in mental status thus prompting an assessment in the emergency department. She was found to have an elevated white blood cell count as well as signs of an evolving pneumonia on a chest x-ray. Upon further questioning, the patient does admit that she has been coughing for about the past week. It was also noted that she did not take her Keppra yesterday morning. The patient was given 1 gram of IV Keppra while in the emergency department. A CT of the head was also completed. There is no evidence of hemorrhage or acute process. Electrocardiogram revealed a sinus rhythm, 81 beats per minute. Additional labs of note include a sodium of 134 and a glucose of 107. The patient has completed a follow-up brain MRI. I reviewed the images as well as the radiologist's interpretation of this test. There is no significant change compared with the previous MRI done June 28, 2017. There is chronic small vessel ischemic changes well as a central pontine capillary telangiectasia. No mesial temporal sclerosis. No evidence of acute or subacute stroke. An EEG has been ordered and is pending at this time. Past Medical/Surgical History Medical Problems: (1) Confusion Status: Acute (2) Expressive aphasia Status: Acute (3) Expressive aphasia Status: Acute (4) Hypertensive urgency Status: Acute (5) Precordial chest pain Status: Acute (6) Status epilepticus Status: Acute Family History No family history of epilepsy or seizure disorder in any immediate family member. Social History Smokeless Tobacco Use: No Alcohol Use: none Drug Use: none Marital Status: Occupation Status: retired Allergies Coded Allergies: Phenobarbital (Verified Allergy, Severe, HIVES, 09/18/17) Phenytoin (Verified Allergy, Severe, HIVES, 09/18/17) Escitalopram (Unverified Adverse Reaction, Intermediate, DIARRHEA, 09/18/17 ) Current Inpatient Medications Current Inpatient Medications Medications (Trade) Dose Ordered Sig/Trem[place]ne Route Start Time Stop Time Status Last Admin Dose Admin Methylprednisolone Sodium Succinate 30 mg/Syringe 0.48 ml @ 1.5 mls/min Q8H IV 09/18/17 21:00 10/18/17 20:59 09/19/17 05:12 1.5 MLS/MIN Ondansetron HCl (Zofran Inj) 4 mg Q6H PRN IV 09/18/17 18:30 10/18/17 18:29 Guaifenesin (Mucinex Contr Rel Tab) 600 mg BID PO 09/18/17 21:00 10/18/17 20:59 09/19/17 07:59 600 MG Acetaminophen 100 ml @ 400 mls/hr Q8H PRN IV 09/18/17 18:30 10/18/17 18:29 Pantoprazole Sodium 40 mg/ Syringe 10 ml @ 5 mls/min DAILY@11 IV 09/19/17 11:00 09/23/17 10:59 Miscellaneous Information (Consult) 1 ea UD PRN N/A 09/18/17 18:30 10/18/17 18:29 Vancomycin HCl (Consult) 1 ea UD PRN N/A 09/18/17 18:30 10/18/17 18:29 Potassium Chloride/Sodium Chloride 1,000 ml @ 75 mls/hr [id number] IV 09/18/17 21:00 10/18/17 20:59 09/18/17 21:10 75 MLS/HR Acetaminophen (Tylenol Tab) 650 mg Q4H PRN PO 09/18/17 18:45 10/18/17 18:44 09/18/17 21:09 650 MG Clopidogrel Bisulfate (plAVix TAB) 75 mg DAILY PO 09/19/17 09:00 10/19/17 08:59 09/19/17 08:01 75 MG Diltiazem HCl (TIAzac CAP) 120 mg DAILY PO 09/19/17 09:00 10/19/17 08:59 09/19/17 08:01 120 MG Fluticasone Propionate (Flonase Nasal [place]) 2 sprays DAILY STEPHANIE 09/19/17 09:00 10/19/17 08:59 09/19/17 07:59 2 SPRAYS Hyoscyamine Sulfate (Levsin Tab) 0.125 mg DAILY PRN UT 09/18/17 18:45 10/18/17 18:44 Levetiracetam (Keppra Tab) 1,000 mg BID PO 09/18/17 21:00 10/18/17 20:59 09/19/17 08:00 1,000 MG Levothyroxine Sodium (Synthroid Tab) 25 mcg DAILYBB PO 09/19/17 06:00 10/19/17 06:59 09/19/17 06:02 25 MCG Miscellaneous Information (Order Awaiting Action) 1 ea QS N/A 09/19/17 00:00 10/19/17 00:00 Miscellaneous Information (Order Awaiting Action) 1 ea QS N/A 09/19/17 00:00 10/19/17 00:00 Ipratropium [place] (Atrovent 0.02% 0.5MG/2.5ML Neb) 0.5 mg Q6R INH 09/18/17 21:00 10/18/17 20:59 09/19/17 07:14 0.5 MG Levalbuterol (Xopenex 1.25MG/ 0.5ML Neb) 1.25 mg Q6R INH 09/18/17 21:00 10/18/17 20:59 09/19/17 07:14 1.25 MG Ipratropium [place] (Atrovent 0.02% 0.5MG/2.5ML Neb) 0.5 mg Q2H PRN INH 09/18/17 19:00 10/18/17 18:59 Levalbuterol (Xopenex 1.25MG/ 0.5ML Neb) 1.25 mg Q2H PRN INH 09/18/17 19:00 10/18/17 18:59 Gadobutrol (Gadavist) 6.5 mmol UD PRN IV 09/18/17 20:30 09/22/17 20:29 Vancomycin HCl 750 mg/Sodium Chloride 265 ml @ 125 mls/hr DAILY@2000 IV 09/19/17 20:00 09/25/17 19:59 Piperacillin Sod/ Tazobactam Sod 3.375 gm/Dextrose 115 ml @ 28.75 mls/ hr Q8H IV 09/19/17 02:00 09/25/17 01:59 09/19/17 02:16 28.75 MLS/HR Review of Systems Constitutional: No fever chills Eyes: No vision loss or diplopia, she does report a history of glaucoma Ears nose throat: Chronic hearing loss Cardiovascular: No chest pain or palpitations Respiratory: As per history of present illness and notable for cough x1 week Musculoskeletal: No myalgia or arthralgia Neurological: As per history of present illness, no focal weakness, numbness, or ataxia Psychiatric: No depression or anxiety Hematologic: No abnormal bruising or bleeding or swollen glands A full 10 point review of systems was obtained from this patient with pertinent positives and negatives described in the history of present illness and otherwise listed above. All remaining systems were reviewed and are negative. Physical Exam Vital Signs (Past 24 Hrs): Date Time Temp Pulse Resp B/P (MAP) Pulse Ox O2 Delivery O2 Flow Rate FiO2 09/19/17 07:49 37.0 87 19 124/64 (84) 92 Room Air 09/19/17 07:15 93 18 94 Room Air 09/19/17 04:03 37.0 91 18 127/71 (89) 94 Room Air 09/19/17 00:46 Room Air 09/19/17 00:08 37.4 88 18 148/67 (94) 93 Room Air 09/18/17 20:50 84 18 96 Room Air 09/18/17 20:35 36.8 96 18 156/86 95 Room Air 09/18/17 19:33 88 21 176/88 96 09/18/17 18:14 37.6 96 22 157/76 95 Room Air 09/18/17 17:02 83 21 138/71 94 Room Air 09/18/17 16:07 96 Room Air 09/18/17 15:41 84 09/18/17 15:38 37.6 81 22 139/58 96 Room Air The patient is a well-developed, well-nourished elderly female. She is alert and fully oriented. Recent and remote memory intact. Attention and concentration normal. Patient exhibits a normal spontaneous speech pattern as well as an age-appropriate fund of knowledge. She is able to name objects, repeat phrases, and read text without difficulty. Visual liu full to confrontation. Visual acuity normal. Pupils equal round reactive to light and accommodation. Eye movements normal. There is no nystagmus. Facial sensation intact. There is no facial droop or weakness. There is diminished hearing to finger rub bilaterally. Patient does not have her hearing aids today. Palate elevates to midline. Shoulder shrug strength intact. Tongue protrudes to midline. Sensation intact to all modalities in all 4 limbs. Deep tendon reflexes are intact and symmetrical for the arms and legs bilaterally. Plantar responses downgoing bilaterally. There is no dysdiadochokinesia or dysmetria of [id number] or heel to jacobs bilaterally. Ophthalmoscopic examination reveals normal-appearing optic nerves and posterior segments. No papilledema or hemorrhages. Carotid pulses normal bilaterally, no bruits to auscultation. Patient exhibits a normal gait and station. She has normal muscle strength and tone in all 4 limbs. No atrophy. No abnormal movements observed. Laboratory Results Past 24 Hours: 09/19/17 05:17 Red Blood Count 4.01, Mean Corpuscular Volume 96.0, Mean Corpuscular Hemoglobin 32.7, Mean Corpuscular Hemoglobin Concent 34.0, Mean Platelet Volume 11.9, Neutrophils (%) (Auto) 93.8, Lymphocytes (%) (Auto) 4.7, Monocytes (%) (Auto) 1.1, Eosinophils (%) (Auto) 0.0, Basophils (%) (Auto) 0.1, Neutrophils # (Auto) 17.45, Lymphocytes # (Auto) 0.87, Monocytes # (Auto) 0.20, Eosinophils # (Auto) 0.00, Basophils # (Auto) 0.01 09/19/17 05:17 Test 09/18/17 16:05 09/18/17 16:07 09/18/17 17:36 09/19/17 05:17 Bedside Glucose 121 mg/dl (70-90) Prothrombin Time 10.0 SECONDS (9.0-12.0) Prothromb Time International Ratio 1.0 (0.9-1.1) Activated Partial Thromboplast Time 26.6 SECONDS (21.0-31.0) Partial Thromboplastin Ratio 1.0 Total Creatine Kinase 85 U/L (26-192) Creatine Kinase MB < 1.0 ng/ml (0.5-3.6) Creatine Kinase MB Ratio (0-3.0) Troponin I < 0.015 ng/ml (0-0.045) Urine Color YELLOW Urine Appearance CLEAR (CLEAR) Urine pH >= 9.0 (4.5-7.5) Urine Specific [place] 1.008 (1.000-1.030) Urine Protein NEG (NEG) Urine Glucose (UA) NEG (NEG) Urine Ketones NEG (NEG) Urine Occult Blood NEG (NEG) Urine Nitrite NEG (NEG) Urine Bilirubin NEG (NEG) Urine Urobilinogen NEG (NEG) Urine Leukocyte Esterase SMALL (NEG) Urine WBC (Auto) 5-10 /hpf (0-5) Urine RBC (Auto) 0-4 /hpf (0-4) Urine Hyaline Casts (Auto) 0 /lpf (0-5) Urine Epithelial Cells (Auto) 10-20 /lpf (0-5) Urine Bacteria (Auto) NEG (NEG) White Blood Count 18.59 K/uL (4.8-10.8) Red Blood Count 4.01 M/uL (4.2-5.4) Hemoglobin 13.1 g/dL (12.0-16.0) Hematocrit 38.5 % (37-47) Mean Corpuscular Volume 96.0 fL (80-100) Mean Corpuscular Hemoglobin 32.7 pg (25-34) Mean Corpuscular Hemoglobin Concent 34.0 g/dl (32-36) Platelet Count 236 K/uL (130-400) Mean Platelet Volume 11.9 fL (7.4-10.4) Neutrophils (%) (Auto) 93.8 % Lymphocytes (%) (Auto) 4.7 % Monocytes (%) (Auto) 1.1 % Eosinophils (%) (Auto) 0.0 % Basophils (%) (Auto) 0.1 % Neutrophils # (Auto) 17.45 K/uL (1.4-6.5) Lymphocytes # (Auto) 0.87 K/uL (1.2-3.4) Monocytes # (Auto) 0.20 K/uL (0.11-0.59) Eosinophils # (Auto) 0.00 K/uL (0-0.5) Basophils # (Auto) 0.01 K/uL (0-0.2) RDW Standard Deviation 51.1 fL (36.4-46.3) RDW Coefficient of Variation 14.5 % (11.5-14.5) Immature Granulocyte % (Auto) 0.3 % Immature Granulocyte # (Auto) 0.06 K/uL (0.00-0.02) Anion Gap 6.0 mmol/L (3-11) Est Creatinine Clear Calc Drug Dose 37.1 ml/min Estimated GFR () 75.1 Estimated GFR (Non- 64.8 BUN/Creatinine Ratio 17.1 (10-20) Calcium Level 8.0 mg/dl (8.5-10.1) Magnesium Level 2.5 mg/dl (1.8-2.4) Impression Suspected nocturnal seizure followed by subtle confusion and word-finding difficulty or speech dysfluency the following day. These symptoms have resolved. I do not find any neurologic deficits on her examination this morning. This episode is similar to her previous episodes. There is no evidence of acute or subacute stroke on the recently completed brain MRI. A thorough neuro imaging evaluation completed during her June admission to the hospital was also negative for acute or subacute stroke. Furthermore, there was no evidence of a stenotic lesion on MR angiography of the head and neck at that time. She has had normal EKGs as well as an unremarkable echocardiogram. Plan Continue Keppra 1000 milligrams twice daily Continue Plavix 75 milligrams daily I agree with obtaining an EEG. However, the results of this test would not alter her current management and may be completed as an outpatient if she is ready for discharge this weekend. Continue medical management of patient's pneumonia. Follow-up in outpatient neurology clinic.
[2017-09-19] MEDS ORDERED: PANTOprazole INJ 40 MG in SYRINGE 0 ML IV SCH (11:00)
--- NOTE | 2017-09-19 13:04 | Hospitalist Progress Note ---
Hospitalist Progress Note Date of Service Sep 19, 2017. Subjective Pt evaluation today including: conversation w/ patient, physical exam, chart review, lab review, review of studies, review of inpatient medication list Patient seen and evaluated. No acute events overnight. No seizure activity. NSR on monitor with rates in the 60-70s. It appears patient can recall waking up in the middle of the night with diffuse body shakes. She states she went to the chair and tried to drink water thinking she was dehydrated. She then went back to sleep. Apparently when she woke up again she was having some confusion and word finding issues. Per admission the wasn't sure if she was at baseline however this AM patient states her has dementia. She appears to be at baseline and with discussing with daughter she feels she is doing much better. Given her recollection of the shaking she likely had rigors which given her PNA on imaging would be likely She is alert and oriented. She does seem to having difficulty getting what she is thinking out intermittently. This is only seen with more involved questions. Such as asking her what the neurologist said to her this morning. However general conversation was fluent and without difficulty. She also reports her had a recent pneumonia and has COPD. She states over the past couple days she hasn't been feeling well, mostly complaining of fatigue. She endorses a cough but only with clear sputum and therefore didn't think anything of it. She denies having a fever at home. Constitutional: + fatigue, No fever, No chills Respiratory: + cough, + sputum (clear), No wheezing, No shortness of breath Cardiovascular: No chest pain, No palpitations Abdomen: No pain, No nausea, No vomiting, No diarrhea, No constipation Musculoskeletal: No swelling, No calf pain Female : No dysuria Heme: No abnormal bleeding/bruising Skin: No rash Medications Current Inpatient Medications Medications (Trade) Dose Ordered Sig/[place]ne Route Start Time Stop Time Status Last Admin Dose Admin Methylprednisolone Sodium Succinate 30 mg/Syringe 0.48 ml @ 1.5 mls/min Q8H IV 09/18/17 21:00 10/18/17 20:59 09/19/17 05:12 1.5 MLS/MIN Ondansetron HCl (Zofran Inj) 4 mg Q6H PRN IV 09/18/17 18:30 10/18/17 18:29 Guaifenesin (Mucinex Contr Rel Tab) 600 mg BID PO 09/18/17 21:00 10/18/17 20:59 09/19/17 07:59 600 MG Acetaminophen 100 ml @ 400 mls/hr Q8H PRN IV 09/18/17 18:30 10/18/17 18:29 Pantoprazole Sodium 40 mg/ Syringe 10 ml @ 5 mls/min DAILY@11 IV 09/19/17 11:00 09/23/17 10:59 09/19/17 10:55 5 MLS/MIN Miscellaneous Information (Consult) 1 ea UD PRN N/A 09/18/17 18:30 10/18/17 18:29 Vancomycin HCl (Consult) 1 ea UD PRN N/A 09/18/17 18:30 10/18/17 18:29 Potassium Chloride/Sodium Chloride 1,000 ml @ 75 mls/hr [id number] IV 09/18/17 21:00 10/18/17 20:59 09/18/17 21:10 75 MLS/HR Acetaminophen (Tylenol Tab) 650 mg Q4H PRN PO 09/18/17 18:45 10/18/17 18:44 09/18/17 21:09 650 MG Clopidogrel Bisulfate (plAVix TAB) 75 mg DAILY PO 09/19/17 09:00 10/19/17 08:59 09/19/17 08:01 75 MG Diltiazem HCl (TIAzac CAP) 120 mg DAILY PO 09/19/17 09:00 10/19/17 08:59 09/19/17 08:01 120 MG Fluticasone Propionate (Flonase Nasal [place]) 2 sprays DAILY STEPHANIE 09/19/17 09:00 10/19/17 08:59 09/19/17 07:59 2 SPRAYS Hyoscyamine Sulfate (Levsin Tab) 0.125 mg DAILY PRN UT 09/18/17 18:45 10/18/17 18:44 Levetiracetam (Keppra Tab) 1,000 mg BID PO 09/18/17 21:00 10/18/17 20:59 09/19/17 08:00 1,000 MG Levothyroxine Sodium (Synthroid Tab) 25 mcg DAILYBB PO 8/11/18 06:00 10/19/17 06:59 09/19/17 06:02 25 MCG Miscellaneous Information (Order Awaiting Action) 1 ea QS N/A 09/19/17 00:00 10/19/17 00:00 Miscellaneous Information (Order Awaiting Action) 1 ea QS N/A 09/19/17 00:00 10/19/17 00:00 Ipratropium [place] (Atrovent 0.02% 0.5MG/2.5ML Neb) 0.5 mg Q6R INH 09/18/17 21:00 10/18/17 20:59 09/19/17 07:14 0.5 MG Levalbuterol (Xopenex 1.25MG/ 0.5ML Neb) 1.25 mg Q6R INH 09/18/17 21:00 10/18/17 20:59 09/19/17 07:14 1.25 MG Ipratropium [place] (Atrovent 0.02% 0.5MG/2.5ML Neb) 0.5 mg Q2H PRN INH 09/18/17 19:00 10/18/17 18:59 Levalbuterol (Xopenex 1.25MG/ 0.5ML Neb) 1.25 mg Q2H PRN INH 09/18/17 19:00 10/18/17 18:59 Gadobutrol (Gadavist) 6.5 mmol UD PRN IV 09/18/17 20:30 09/22/17 20:29 Vancomycin HCl 750 mg/Sodium Chloride 265 ml @ 125 mls/hr DAILY@2000 IV 09/19/17 20:00 09/25/17 19:59 Piperacillin Sod/ Tazobactam Sod 3.375 gm/Dextrose 115 ml @ 28.75 mls/ hr Q8H IV 09/19/17 02:00 09/25/17 01:59 09/19/17 10:55 28.75 MLS/HR Objective Vital Signs Date Time Temp Pulse Resp B/P (MAP) Pulse Ox O2 Delivery O2 Flow Rate FiO2 09/19/17 11:41 37.1 96 18 126/63 (84) 94 Room Air 09/19/17 08:00 Room Air 09/19/17 07:49 37.0 87 19 124/64 (84) 92 Room Air 09/19/17 07:15 93 18 94 Room Air 09/19/17 04:03 37.0 91 18 127/71 (89) 94 Room Air 09/19/17 00:46 Room Air 09/19/17 00:08 37.4 88 18 148/67 (94) 93 Room Air 09/18/17 20:50 84 18 96 Room Air 09/18/17 20:35 36.8 96 18 156/86 95 Room Air 09/18/17 19:33 88 21 176/88 96 09/18/17 18:14 37.6 96 22 157/76 95 Room Air 09/18/17 17:02 83 21 138/71 94 Room Air 09/18/17 16:07 96 Room Air 09/18/17 15:41 84 09/18/17 15:38 37.6 81 22 139/58 96 Room Air Physical Exam General Appearance: WD/WN, no apparent distress Eyes: sclerae normal ENT: hearing grossly normal Neck: supple, no JVD, trachea midline Respiratory/Chest: no respiratory distress, no accessory muscle use, + crackles (course at R base) Cardiovascular: regular rate, rhythm Abdomen: normal bowel sounds, non tender, soft Extremities: no pedal edema, no calf tenderness Neurologic/Psychiatric: alert, oriented x 3 Skin: normal color, warm/dry Laboratory Results Last 24 Hours Test 09/18/17 16:05 09/18/17 16:07 09/18/17 17:36 09/19/17 05:17 Bedside Glucose 121 mg/dl White Blood Count 24.77 K/uL 18.59 K/uL Red Blood Count 4.15 M/uL 4.01 M/uL Hemoglobin 13.5 g/dL 13.1 g/dL Hematocrit 39.7 % 38.5 % Mean Corpuscular Volume 95.7 fL 96.0 fL Mean Corpuscular Hemoglobin 32.5 pg 32.7 pg Mean Corpuscular Hemoglobin Concent 34.0 g/dl 34.0 g/dl Platelet Count 247 K/uL 236 K/uL Mean Platelet Volume 12.2 fL 11.9 fL Neutrophils (%) (Auto) 83.5 % 93.8 % Lymphocytes (%) (Auto) 7.9 % 4.7 % Monocytes (%) (Auto) 8.0 % 1.1 % Eosinophils (%) (Auto) 0.1 % 0.0 % Basophils (%) (Auto) 0.2 % 0.1 % Neutrophils # (Auto) 20.68 K/uL 17.45 K/uL Lymphocytes # (Auto) 1.96 K/uL 0.87 K/uL Monocytes # (Auto) 1.99 K/uL 0.20 K/uL Eosinophils # (Auto) 0.02 K/uL 0.00 K/uL Basophils # (Auto) 0.04 K/uL 0.01 K/uL RDW Standard Deviation 50.4 fL 51.1 fL RDW Coefficient of Variation 14.3 % 14.5 % Immature Granulocyte % (Auto) 0.3 % 0.3 % Immature Granulocyte # (Auto) 0.08 K/uL 0.06 K/uL Prothrombin Time 10.0 SECONDS Prothromb Time International Ratio 1.0 Activated Partial Thromboplast Time 26.6 SECONDS Partial Thromboplastin Ratio 1.0 Sodium Level 134 mmol/L 139 mmol/L Potassium Level 3.7 mmol/L 4.0 mmol/L Chloride Level 104 mmol/L 111 mmol/L Carbon Dioxide Level 24 mmol/L 22 mmol/L Anion Gap 6.0 mmol/L 6.0 mmol/L Blood Urea Nitrogen 15 mg/dl 14 mg/dl Creatinine 0.81 mg/dl 0.82 mg/dl Est Creatinine Clear Calc Drug Dose 38.9 ml/min 37.1 ml/min Estimated GFR () 76.2 75.1 Estimated GFR (Non- 65.8 64.8 BUN/Creatinine Ratio 18.7 17.1 Random Glucose 107 mg/dl 162 mg/dl Calcium Level 8.6 mg/dl 8.0 mg/dl Magnesium Level 2.7 mg/dl 2.5 mg/dl Total Creatine Kinase 85 U/L Creatine Kinase MB < 1.0 ng/ml Creatine Kinase MB Ratio Troponin I < 0.015 ng/ml Urine Color YELLOW Urine Appearance CLEAR Urine pH >= 9.0 Urine Specific [place] 1.008 Urine Protein NEG Urine Glucose (UA) NEG Urine Ketones NEG Urine Occult Blood NEG Urine Nitrite NEG Urine Bilirubin NEG Urine Urobilinogen NEG Urine Leukocyte Esterase SMALL Urine WBC (Auto) 5-10 /hpf Urine RBC (Auto) 0-4 /hpf Urine Hyaline Casts (Auto) 0 /lpf Urine Epithelial Cells (Auto) 10-20 /lpf Urine Bacteria (Auto) NEG Assessment and Plan Seizure Activity with Known Seizure Disorder: - After discussion with the patient she reports full recollection of full body shakes and then ambulating to the chair and getting a drink as she thought she was dehydration and would not fit with seizure activity and likely represented rigors which is fitting given XR and her was recently ill with PNA/COPD - Her word finding/confusion element could be infection related as well - She also missed a dose of her Keppra prior to admission - Keppra has been increased to 1000 mg BID - Neurology following - appreciate recommendations R Lung Pneumonia: - She endorses a cough and fatigue for approx. 1 week and a with recent pneumonia/copd exac. - likely this came before suspected seizure episode so aspiration is unlikely but still possible given location - Can continue Zosyn at this time; Await nasal swap and if negative will D/C Vanc as likely this is CAP vs Aspiration; Convert to Prednisone 40 mg daily - Atrovent/Xopenex TREMAYNE; Flonase; Mucinex BID Cerebrovascular Disease/HTN: - Plavix 75 mg daily; Diltiazem 120 mg daily Hypothyroidism: - Levothyroxine 25 mcg daily DVT Prophylaxis: SCDs Code Status: FULL RESUSCITATION Disposition: Updated daughter Kiya over the phone; PT/OT - Possible D/C next 1-2 days Continued [facility] stay due to: multiple IV medications needed Discharge planning: home ([place])
[2017-09-19] MEDS: NSS + 20MEQ KCL 1000ML 1,000 ML IV SCH (15:22)
[2017-09-19] MEDS ORDERED: VANCOMYCIN IV 750 MG in SODIUM CHLORIDE 0.9% 250ML 250 ML IV SCH (20:00)
[2017-09-20] MEDS: PIPERACILL/TAZOBAC IV 3.375 GM in D5W 100ML IV SCH ×2 (02:11→10:26)
[2017-09-20 02:57] VITALS: BP 126/67; PULSE 74; TEMP 37; O2SAT 95
[2017-09-20] MEDS: LEVOTHYROXINE 25 MCG TAB PO SCH (05:53)
[2017-09-20 06:46] LABS: BASO % 0.1 %; BASO ABS # 0.01 K/uL (0-0.2); HEMATOCRIT 35.6 % (37-47); HEMOGLOBIN 12.1 g/dL (12.0-16.0); IG# 0.06 K/uL (0.00-0.02); LYMPH % 8.7 %; LYMPH ABS # 1.66 K/uL (1.2-3.4); MEAN CELL VOLUME 96.5 fL (80-100); MEAN CORPUSCULAR HEMOGLOBIN 32.8 pg (25-34); MEAN PLATELET VOLUME 12.2 fL (7.4-10.4); MONO % 7.6 %; MONO ABS # 1.46 K/uL (0.11-0.59); NEUT % 83.3 %; NEUT ABS # 15.94 K/uL (1.4-6.5); PLATELET COUNT 218 K/uL (130-400); RED CELL DISTRIBUTION WIDTH CV 14.9 % (11.5-14.5); RED CELL DISTRIBUTION WIDTH SD 52.9 fL (36.4-46.3); WHITE BLOOD COUNT 19.13 K/uL (4.8-10.8)
[2017-09-20 07:06] VITALS: PULSE 71; O2SAT 97
[2017-09-20] MEDS: IPRATROPIUM BROMIDE NEB SOLN 0.02% 2.5 ML VIAL INH SCH (07:06)
[2017-09-20] MEDS: LEVALBUTEROL 1.25MG/0.5ML NEB INH SCH (07:06)
[2017-09-20 07:22] LABS: CALCIUM 8.6 mg/dl (8.5-10.1); CREATININE 0.74 mg/dl (0.60-1.20); POTASSIUM 3.8 mmol/L (3.5-5.1)
[2017-09-20 07:50] VITALS: BP 123/64; PULSE 63; TEMP 36.5; O2SAT 98
[2017-09-20] MEDS: CLOPIDOGREL BISULFATE 75 MG TAB PO SCH (08:07)
[2017-09-20] MEDS: GUAIFENESIN 600 MG TABCR PO SCH (08:07)
[2017-09-20] MEDS: LEVETIRACETAM 500 MG TAB PO SCH (08:07)
[2017-09-20] MEDS: FLUTICASONE PROPIONATE NA SPR 16 GM BTL NAE SCH (08:08)
[2017-09-20] MEDS: DILTIAZEM HCL 120 MG EXT REL CAP PO SCH (08:08)
[2017-09-20] MEDS ORDERED: PANTOprazole SOD 40 MG TAB PO SCH (09:00)
[2017-09-20 09:18] VITALS: BP 118/62; PULSE 62; O2SAT 97
[2017-09-20 11:37] VITALS: BP 132/66; PULSE 69; TEMP 36.7; O2SAT 98
[2017-09-20] MEDS ORDERED: LEVE500T13 PO (12:37)
[2017-09-20] MEDS ORDERED: PRED10TA PO (12:37)
--- NOTE | 2017-09-20 12:42 | Discharge Instructions ---
Discharge Instructions Date of Service Sep 20, 2017. Admission Reason for Admission: Epilepsy Discharge Discharge Diagnosis / Problem: Pneumonia Discharge Goals Goal(s): Decrease discomfort, Improve function, Increase independence Activity Recommendations Activity Limitations: resume your previous activity . Instructions / Follow-Up Instructions / Follow-Up Pneumonia: - It appears you have a pneumonia in the R lung. - You will be given antibiotics to take to clear this up. Take them until they are complete even if your feeling better. -- We will give you a dose of Augmentin in the hospital and will only need to take one dose this evening when you get home -- Since it is Thursday we will send you with 2 pills. One to take tonight and one to take tomorrow morning until you can get your prescription. This was sent to [facility]. -- Recommend to take Augmentin with food to help prevent GI upset (nausea/ vomiting) - Will also give you a steroid taper to take over the next few days. This is to start tomorrow -- Take 40 mg on 09/21 then take 30 mg x 2 days then 20 mg x 2 days then 10 mg x 2 days -- You had steroids today so you are good until tomorrow and can wait until the prescription is picked up. This was sent to your pharmacy as well. - Given the pneumonia and that you remember having full body shakes you may have actually had rigors. This is when you get shakes and tremors for illness. Some people will have fever or chills and some people can have shivering/rigors. Seizure Disorder: - Your neurologist did recommend to continue to take the higher dose of Keppra at 1000 mg twice a day. Recommend to continue to follow-up with him and adjust per his recommendation Home Medications: - Continue your regular home medications as previously prescribed. The only medication changed was the Keppra Current Hospital Diet Patient's current hospital diet: AHA Diet (Heart Healthy) Discharge Diet Recommended Diet: AHA Diet (Heart Healthy) Pending Studies Studies pending at discharge: no Medical Emergencies . Who to Call and When: Medical Emergencies: If at any time you feel your situation is an emergency, please call 911 immediately. . Non-Emergent Contact Non-Emergency issues call your: Primary Care Provider Call Non-Emergent contact if: you have a fever, your pain is concerning you, you have any medication questions . . "Provider Documentation" section prepared by Gay Alonso. .
[2017-09-20] MEDS ORDERED: AMOX875T PO (13:09)
[2017-09-20] MEDS ORDERED: AMOXICILLIN/CLAVULANATE TAB 875 MG TAB PO SCH ×2 (13:15→16:45)
[2017-09-20 13:37] VITALS: BP 132/66; PULSE 69; TEMP 36.7; O2SAT 98
--- NOTE | 2017-09-20 18:11 | Discharge Summary ---
Discharge Summary Date of Service Sep 20, 2017. Discharge Summary Admission Date: Sep 18, 2017 at 18:43 Discharge Date: Sep 20, 2017 Discharge Disposition: Home ([facility]) Principal Diagnosis: Right Pneumonia Problems/Secondary Diagnoses: 1. Seizure Disorder 2. Cerebrovascular Disease 3. HTN 4. Hypothyroidism Immunizations: Have You Had Influenza Vaccine: Unknown History of Tetanus Vaccine?: Unknown History of Pneumococcal: Unknown History of Hepatitis B Vaccine: Unknown Procedures: MRI OF THE BRAIN WITHOUT AND WITH IV CONTRAST SEIZURE PROTOCOL FINDINGS: There are no foci of restricted diffusion to suggest acute infarct. No acute intracranial hemorrhage, midline shift or mass effect is present. Ventricular system is stable. Basilar cisterns are patent. There are no extra-axial collections. Flow-voids for the major intracranial vessels are present. A 5 mm focus of enhancement within the mateo is unchanged since MRI of January 14, 2016. No additional sites of abnormal parenchymal enhancement are present. Calvarial signal is maintained. Orbits and sinuses are unremarkable. Numerous white matter T2 hyperintense foci are unchanged. IMPRESSION: 1. No acute intracranial findings. 2. No change in appearance of the brain. Stable 5 mm focus of enhancement within the mateo since MRI January 14, 2016. This favors a capillary telangiectasia. 3. Numerous white matter T2 hyperintense foci which likely reflect small vessel disease. SINGLE VIEW CHEST FINDINGS: An AP, portable, upright chest radiograph is compared to study dated 06/27/2017. The examination is degraded by portable technique and patient rotation. The heart is top normal for projection and there is atherosclerotic calcification of the thoracic aorta. There is elevation of left hemidiaphragm and bibasilar atelectasis. Patchy airspace consolidation is seen in the right midlung. No large pleural effusion or pneumothorax is seen. The skeletal structures are osteopenic. The bony thorax is grossly intact. IMPRESSION: There is patchy airspace consolidation the right midlung, typical in appearance for pneumonia. Radiographic follow-up to resolution is recommended. Consultations: 1. Neurology - Dr. Kc Medication Reconciliation New Medications: Amoxicillin & Pot Clavulanate (Augmentin 875-125 mg) 1 Tab Tab 875 MG PO BID, #8 TAB Prednisone Tab (Prednisone) 10 Mg Tab 10 MG PO UD, #16 TAB Take 40 mg on 09/21. Then 30 mg x 2 days then 20 mg x 2 days then 10 mg x 2 days Changed Medications: Levetiracetam (Keppra) 500 Mg Tab 1000 MG PO BID for 30 Days, #120 TABS (Changed from: 500 MG; Removed Instructions) Continued Medications: Clopidogrel (Plavix) 75 Mg Tab 75 MG PO DAILY Diltiazem Hcl Extended Release (Diltiazem Hcl Er) 120 Mg Cap 120 MG PO DAILY Dorzolamide Hcl-Timolol Maleat (Cosopt Pf) 1 Martha Martha 1 DROP OPB BID COSOPT 2%-0.5% Fluocinolone Acetonide (Otic) (Dermotic) 0.01 % Oil 2 DROPS OTB 3XWK Fluticasone Propionate (Nasal) (Flonase Allergy Relief) 50 Mcg/Act Spr 2 SPRAYS STEPHANIE DAILY Hyoscyamine Sulfate (Levsin) 0.125 Mg Tab 0.125 MG UT DAILY PRN for LOOSE BOWELS/ABDOMINAL CRAMPS Levothyroxine Sodium (Levothyroxine Sodium) 25 Mcg Tab 25 MCG PO DAILY Discontinued Medications: Levetiracetam (Keppra) 250 Mg Tab 250 MG PO BID TAKE ALONG WITH ONE 500 MG TABLET TO = 750 MG Discharge Exam Review of Systems: Constitutional: No fever, No chills ENT: No nasal symptoms, No sore throat, No trouble swallowing Respiratory: + cough, + sputum, No wheezing, No dyspnea on exertion, No dyspnea at rest Cardiovascular: No chest pain, No palpitations Abdomen: No pain, No nausea, No vomiting, No diarrhea, No constipation Musculoskeletal: No swelling, No calf pain Genitourinary - Female: No dysuria Neurologic: No numbness/tingling, No balance problems Hematologic / Lymphatic: No abnormal bleeding/bruising Integumentary: No rash Physical Exam: General Appearance: WD/WN, no apparent distress Eyes: sclerae normal ENT: hearing grossly normal Neck: supple, no JVD, trachea midline Respiratory/Chest: no respiratory distress, no accessory muscle use, + crackles (minimal at R base; good aeration without wheeze) Cardiovascular: regular rate, rhythm, no gallop, no murmur Abdomen / GI: normal bowel sounds, non tender, soft Extremities: no calf tenderness, no pedal edema Neurologic/Psychiatric: no motor/sensory deficits, alert, oriented x 3 Skin: normal color, warm/dry Hospital Course ADMISSION: The patient is an 87-year-old female who presents to the emergency department with complaint of a seizure that occurred this morning, with symptoms of her not being able to get words out. Her is unsure if she is returned to her baseline but reports is been with her all day, and has had no further episodes. Her last seizure was 2 years ago, but she did have a recent admission to the hospital here in June due to a fascia. Routine seizure medications including Keppra 750 mg p.o. twice daily, that she did not take this morning. HOSPITAL COURSE: Seizure Activity with Known Seizure Disorder: - After discussion with the patient she reports full recollection of full body shakes and then ambulating to the chair and getting a drink as she thought she was dehydrated and would not fit with seizure activity and likely represented rigors which is fitting given XR and her was recently ill with PNA/COPD - Her word finding/confusion element could be infection related as well and appears to be resolved at this time - She also missed a dose of her Keppra prior to admission - Keppra has been increased to 1000 mg BID - Neurology followed - recommended to continue increased dose and outpatient EEG - patient reports F/U with Dr. Kc for beginning of October R Lung Pneumonia: - She endorses a cough and fatigue for approx. 1 week and a with recent pneumonia/copd exac. - likely this came before suspected seizure episode so aspiration is unlikely but still possible given location. Since she seemed to tolerate Zosyn will convert to Augmentin - Augmentin BID x 7 day total therapy; was initiated on steroids and will complete quick taper over the next few days Cerebrovascular Disease/HTN: - Plavix 75 mg daily; Diltiazem 120 mg daily Hypothyroidism: - Levothyroxine 25 mcg daily Code Status: FULL RESUSCITATION Disposition: Plan to return to [facility]. F/U with PCP and Neuro in the next couple weeks Total Time Spent: Greater than 30 minutes This includes examination of the patient, discharge planning, medication reconciliation, and communication with other providers. Discharge Instructions Please refer to the electronic Patient Visit Report (Discharge Instructions) for additional information. Additional Copies To Rehan Nielson M.D.
[2017-09-20] MEDS ORDERED: VANCOMYCIN TROUGH ONE (19:30)
== END 2017-09-20 14:50 | disposition home or self-care (01) | DRG 100 ==
LOC: EDBD 15:27 → C.EDB 15:27 → C.2T 18:43 → ENRESERV 19:13
PROVIDERS: ADMIT Hospitalist; ATTEND Internal Medicine
DX: G40.909 Epilepsy, unspecified, not intractable, without status epilepticus (principal); J69.0 Pneumonitis due to inhalation of food and vomit; R47.01 Aphasia; R29.703 NIHSS score 3; I10 Essential (primary) hypertension; I67.9 Cerebrovascular disease, unspecified; E03.9 Hypothyroidism, unspecified; H40.9 Unspecified glaucoma; Z79.899 Other long term (current) drug therapy; Z79.02 Long term (current) use of antithrombotics/antiplatelets; Z88.8 Allergy status to other drugs, medicaments and biological substances

== ENCOUNTER 2020-01-13 13:58 | Observation (INO) ==
[2020-01-13] MEDS ORDERED: ACETAMINOPHEN 1,000 MG/100 ML VIAL IV STA (14:11)
[2020-01-13] MEDS ORDERED: CEFEPIME 2,000 MG/20 ML VIAL IV STA (14:11)
[2020-01-13] MEDS ORDERED: SODIUM CHLORIDE 0.9% 1000ML 1,000 ML IV SCH (14:15)
--- NOTE | 2020-01-13 14:19 | Emergency Department Note ---
Impression & Plan Sepsis, Acute confusion, Tachycardia, Pneumonia ED Provider Note NAME: CARLYLE KING AGE: 89 SEX: F : 1930 ARRIVES VIA: Ambulance INFORMANT: [Patient][ems, nursing] ED PROVIDER(S): [Sanjay Jamil MD] CHIEF COMPLAINT: Altered mental status HISTORY OF PRESENT ILLNESS: The patient is an 89-year-old female who presents by EMS from [facility]. She was febrile and confused today. The patient states that she felt confused yesterday as well. She denies any shortness of breath, chest pain, headache, body aches, diarrhea, vomiting or urinary complaints. The patient denies any known Covid exposures and as per [facility], there is no Covid at their ce nter. The patient does admit to a mild sore throat. The patient states that she has not noticed any coughing, she has not noticed any rash. The history is somewhat limited as the patient presents with some confusion. No further history obtainable. Of note, the patient was here for some time and [facility] staff called. They think she may have aspirated on a pill yesterday. REVIEW OF SYSTEMS: Unobtainable given the confusion. PMHx/PSHx: See Below SOCIAL HISTORY: See Below. PHYSICAL EXAM: GENERAL: Patient is in no acute distress. HEENT: No acute trauma, normocephalic atraumatic, mucous membranes moist, no nasal congestion, no scleral icterus. No throat erythema or exudate. NECK: No stridor, no adenopathy, no meningismus, trachea is midline. LUNGS: No obvious wheezing, no respiratory distress, no increased accessory muscle use. HEART: Mildly tachycardic, regular rhythm, equal radial pulses bilaterally. ABDOMEN: Soft, nontender, bowel sounds positive, no hernias, no peritonitis. EXTREMITIES: No cyanosis or edema, full range of motion of all the joints without pain or difficulty, no signs for acute trauma. NEUROLOGIC: Awake and alert, moves all extremities, no focal motor deficits, no speech slur. There is some confusion noted. She is a poor historian. SKIN: No rash, no jaundice, no diaphoresis. DIFFERENTIAL DIAGNOSIS: Sepsis, UTI, pneumonia, metabolic, electrolyte abnormalities, cardiac sources, influenza, COVID-19, intracranial bleeding or stroke, intracerebral event, toxicologic, neurologic, as well as other pathologies. EMERGENCY DEPARTMENT COURSE/PROCEDURES: ECG: Indication was confusion and tachycardia. The ECG shows a normal sinus rhythm with a rate of 94. There is some diffuse nonspecific ST change. There is no ST elevation, no PVCs. The QTc is 467. Compared to an ECG from 20 September 2017, the rate has increased. Continuous Cardiac Monitoring: An order was placed for continuous cardiac monitoring. The monitor shows a rate of 85 with normal sinus rhythm. Critical Care Note: I have personally spent 38 minutes of critical care time in the direct management of this patient. This includes bedside care, interpretation of diagnostic studies, and testing, discussion with consultants, patient, and family members, and other required patient management activities. This 38 minutes is in excess of all separately billable procedures. MEDICAL DECISION MAKING: There is a significant leukocytosis at 19,000, this could be consistent with infection. No anemia. There was a normal platelet count. No coagulopathy. No significant electrolyte abnormality, no kidney failure. Lactic acid level was elevated consistent with infection/sepsis. No concerning liver enzyme elevation. Urinalysis did not show evidence for infection. Covid and influenza testing were negative. Brain CT shows no acute bleed or mass-effect. Chest film suggest a possible right lower lung pneumonia. ECG shows a sinus rhythm, no acute ischemic anemia, no dysrhythmia. On exam, the patient had a fever. She was tachycardic. There was no cellulitis. The patient presents with tachycardia, fever and confusion. She did meet criteria for sepsis. At this point, with her history of potential aspiration yesterday, pneumonia seems the most likely source. The patient received IV saline for hydration, 1.5 L. She was given IV cefepime as empiric antibiotic coverage. She was given IV Tylenol for her fever. The patient does seem improved. Given her presentation, given her findings, I do think a hospital stay is warranted. I did speak to the patient and her daughter, case management has been involved. The on-call hospitalist was consulted. Past Med/Surg History Medical History Epilepsy Surgical History History of breast surgery History of cataract surgery History of dilation and curettage History of hernia repair History of hysterectomy History of oral surgery Hx of tonsillectomy Family History Father Myocardial infarction Cardiac disorder Mother Colorectal cancer Grandfather Diabetes Brother Hypertension Social History Smoking Status: Never smoker Feels Safe at Home: Yes Allergies Allergies Allergy/AdvReac Type Severity Reaction Status Date / Time phenobarbital Allergy Severe HIVES Verified 01/13/20 16:24 phenytoin Allergy Severe HIVES Verified 01/13/20 16:24 escitalopram AdvReac Intermediate DIARRHEA Unverified 01/13/20 16:24 azithromycin AdvReac Unknown Unknown Unverified 01/13/20 16:24 Home Meds Home Medications Medication Instructions Recorded Confirmed diltiazem HCl 120 mg 120 mg PO QAM 01/14/19 01/13/20 capsule,extended release 24 hr levothyroxine 25 mcg tablet 25 mcg PO QAM 01/14/19 01/13/20 Bifidobacterium infantis [Align] 4 mg PO QAM 01/13/20 01/13/20 ascorbic acid (vitamin C) [Vitamin 500 mg PO BID 01/13/20 01/13/20 C] cholecalciferol (vitamin D3) 50 mcg PO QAM 01/13/20 01/13/20 [Vitamin D3] clopidogrel [Plavix] 75 mg PO QAM 01/13/20 01/13/20 dorzolamide-timolol (PF) [Cosopt 1 drp OPB BID 01/13/20 01/13/20 (PF)] levetiracetam [Keppra] 1,000 mg PO BID 01/13/20 01/13/20 melatonin 1 mg PO HS 01/13/20 01/13/20 vit C,S-Ub-uebft-lutein-zeaxan 1 tab PO BID 01/13/20 01/13/20 [PreserVision AREDS-2] zinc 50 mg PO QAM 01/13/20 01/13/20 Previous Rx's Medication Instructions Recorded levetiracetam 250 mg tablet 250 mg PO BID 90 Days #180 tab 07/22/19 Results & Data (ED) Vital Signs Vital Signs - 24 hr 01/13/20 14:13 01/13/20 14:21 01/13/20 15:00 Temperature 37.6 C H 38 C H Temperature Source Oral Rectal Pulse Rate 108 H Pulse Rate from SpO2 Sensor Respiratory Rate 18 Blood Pressure 121/74 Blood Pressure Mean 89 Pulse Oximetry 95 Oxygen Delivery Method Room Air Room Air Sepsis Recent Fever Within 48 Hours No Sepsis New/Unexplained Change in Mental Status N/A Sepsis Action Taken by Nursing Physician Notified 01/13/20 16:05 01/13/20 16:30 01/13/20 17:00 Temperature Temperature Source Pulse Rate 87 84 84 Pulse Rate from SpO2 Sensor 88 84 83 Respiratory Rate 24 18 15 Blood Pressure 110/60 141/63 H 138/63 Blood Pressure Mean 93 104 90 Pulse Oximetry 95 96 95 Oxygen Delivery Method Room Air Room Air Room Air Sepsis Recent Fever Within 48 Hours Sepsis New/Unexplained Change in Mental Status Sepsis Action Taken by Longterm Medications Current Medication List: was personally reviewed by me Laboratory Data Attestation: I reviewed the patient's lab results. Result diagrams: 01/13/20 14:32 01/13/20 14:32 Lab Results 01/13/20 01/13/20 01/13/20 Range/Units 14:32 14:32 14:32 WBC 19.14 H (4.8-10.8) K/uL RBC 4.39 (4.2-5.4) M/uL Hgb 14.0 (12.0-16.0) g/dL Hct 42.4 (37-47) % MCV 96.6 (80-100) fL MCH 31.9 (25-34) pg MCHC 33.0 (32-36) g/dL RDW Std Deviation 52.3 H (36.4-46.3) fL RDW Coeff of Juan Miguel 14.7 H (11.5-14.5) % Plt Count 261 (130-400) K/uL MPV 12.1 H (7.4-10.4) fL Immature Gran % (Auto) 0.3 % Neut % (Auto) 84.4 % Lymph % (Auto) 6.3 % Hanson % (Auto) 8.7 % Eos % (Auto) 0.1 % Baso % (Auto) 0.2 % Neut # (Auto) 16.15 H (1.4-6.5) K/uL Lymph # (Auto) 1.21 (1.2-3.4) K/uL Hanson # (Auto) 1.67 H (0.11-0.59) K/uL Eos # (Auto) 0.01 (0-0.5) K/uL Baso # (Auto) 0.04 (0-0.2) K/uL Immature Gran # (Auto) 0.06 H (0.00-0.02) K/uL PT 10.3 (9.0-12.0) Seconds INR 1.0 (0.9-1.1) APTT 28.0 (21.0-31.0) Seconds PTT Ratio 1.0 Sodium (136-145) mmol/L Potassium (3.5-5.1) mmol/L Chloride (98-107) mmol/L Carbon Dioxide (21-32) mmol/L Anion Gap (3-11) BUN (7-18) mg/dl Creatinine (0.6-1.2) mg/dl Est Cr Clr Drug Dosing Est GFR ( Amer) Est GFR (Non-Af Amer) BUN/Creatinine Ratio (10-20) Glucose (70-99) mg/dl Lactate (0.4-2.0) mmol/L Calcium (8.5-10.1) mg/dl Magnesium (1.8-2.4) mg/dl Total Bilirubin (0.2-1) mg/dl AST (15-37) U/L ALT (12-78) U/L Alkaline Phosphatase (45-117) U/L Total Protein (6.4-8.2) gm/dl Albumin (3.4-5.0) gm/dl Globulin (2.5-4.0) gm/dl Albumin/Globulin Ratio (0.9-2) Procalcitonin < 0.05 (0-0.5) ng/ml Urine Color Urine Appearance (Clear) Urine pH (4.5-7.5) Ur Specific Purdon (1.000-1.030) Urine Protein (Negative) Urine Glucose (UA) (Negative) Urine Ketones (Negative) Urine Blood (Negative) Urine Nitrite (Negative) Urine Bilirubin (Negative) Urine Urobilinogen (Negative) Ur Leukocyte Esterase (Negative) Urine WBC (Auto) (0-5) /hpf Urine RBC (Auto) (0-4) /hpf U Hyaline Cast (Auto) (0-5) /lpf U Epithel Cells (Auto) (0-5) /lpf Urine Bacteria (Auto) (Negative) COVID-19 Eval Order Influ A Molecular Assay (Negative) Influ B Molecular Assay (Negative) SARS-CoV-2, RNA, NAAT (NEGATIVE) 01/13/20 01/13/20 01/13/20 Range/Units 14:32 14:32 14:44 WBC (4.8-10.8) K/uL RBC (4.2-5.4) M/uL Hgb (12.0-16.0) g/dL Hct (37-47) % MCV (80-100) fL MCH (25-34) pg MCHC (32-36) g/dL RDW Std Deviation (36.4-46.3) fL RDW Coeff of Juan Miguel (11.5-14.5) % Plt Count (130-400) K/uL MPV (7.4-10.4) fL Immature Gran % (Auto) % Neut % (Auto) % Lymph % (Auto) % Hanson % (Auto) % Eos % (Auto) % Baso % (Auto) % Neut # (Auto) (1.4-6.5) K/uL Lymph # (Auto) (1.2-3.4) K/uL Hanson # (Auto) (0.11-0.59) K/uL Eos # (Auto) (0-0.5) K/uL Baso # (Auto) (0-0.2) K/uL Immature Gran # (Auto) (0.00-0.02) K/uL PT (9.0-12.0) Seconds INR (0.9-1.1) APTT (21.0-31.0) Seconds PTT Ratio Sodium 139 (136-145) mmol/L Potassium 3.7 (3.5-5.1) mmol/L Chloride 105 (98-107) mmol/L Carbon Dioxide 25 (21-32) mmol/L Anion Gap 9.0 (3-11) BUN 15 (7-18) mg/dl Creatinine 0.82 (0.6-1.2) mg/dl Est Cr Clr Drug Dosing Not Reportable Est GFR ( Amer) 74.0 Est GFR (Non-Af Amer) 63.9 BUN/Creatinine Ratio 17.9 (10-20) Glucose 123 H (70-99) mg/dl Lactate 2.5 H* (0.4-2.0) mmol/L Calcium 9.4 (8.5-10.1) mg/dl Magnesium 2.3 (1.8-2.4) mg/dl Total Bilirubin 0.3 (0.2-1) mg/dl AST 22 (15-37) U/L ALT 29 (12-78) U/L Alkaline Phosphatase 101 (45-117) U/L Total Protein 7.5 (6.4-8.2) gm/dl Albumin 3.5 (3.4-5.0) gm/dl Globulin 4.0 (2.5-4.0) gm/dl Albumin/Globulin Ratio 0.9 (0.9-2) Procalcitonin (0-0.5) ng/ml Urine Color Urine Appearance (Clear) Urine pH (4.5-7.5) Ur Specific Pur[place] (1.000-1.030) Urine Protein (Negative) Urine Glucose (UA) (Negative) Urine Ketones (Negative) Urine Blood (Negative) Urine Nitrite (Negative) Urine Bilirubin (Negative) Urine Urobilinogen (Negative) Ur Leukocyte Esterase (Negative) Urine WBC (Auto) (0-5) /hpf Urine RBC (Auto) (0-4) /hpf U Hyaline Cast (Auto) (0-5) /lpf U Epithel Cells (Auto) (0-5) /lpf Urine Bacteria (Auto) (Negative) COVID-19 Eval Order Covid19 IDNow atMTNC Influ A Molecular Assay (Negative) Influ B Molecular Assay (Negative) SARS-CoV-2, RNA, NAAT (NEGATIVE) 01/13/20 01/13/20 01/13/20 Range/Units 14:44 15:25 15:30 WBC (4.8-10.8) K/uL RBC (4.2-5.4) M/uL Hgb (12.0-16.0) g/dL Hct (37-47) % MCV (80-100) fL MCH (25-34) pg MCHC (32-36) g/dL RDW Std Deviation (36.4-46.3) fL RDW Coeff of Juan Miguel (11.5-14.5) % Plt Count (130-400) K/uL MPV (7.4-10.4) fL Immature Gran % (Auto) % Neut % (Auto) % Lymph % (Auto) % Hanson % (Auto) % Eos % (Auto) % Baso % (Auto) % Neut # (Auto) (1.4-6.5) K/uL Lymph # (Auto) (1.2-3.4) K/uL Hanson # (Auto) (0.11-0.59) K/uL Eos # (Auto) (0-0.5) K/uL Baso # (Auto) (0-0.2) K/uL Immature Gran # (Auto) (0.00-0.02) K/uL PT (9.0-12.0) Seconds INR (0.9-1.1) APTT (21.0-31.0) Seconds PTT Ratio Sodium (136-145) mmol/L Potassium (3.5-5.1) mmol/L Chloride (98-107) mmol/L Carbon Dioxide (21-32) mmol/L Anion Gap (3-11) BUN (7-18) mg/dl Creatinine (0.6-1.2) mg/dl Est Cr Clr Drug Dosing Est GFR ( Amer) Est GFR (Non-Af Amer) BUN/Creatinine Ratio (10-20) Glucose (70-99) mg/dl Lactate (0.4-2.0) mmol/L Calcium (8.5-10.1) mg/dl Magnesium (1.8-2.4) mg/dl Total Bilirubin (0.2-1) mg/dl AST (15-37) U/L ALT (12-78) U/L Alkaline Phosphatase (45-117) U/L Total Protein (6.4-8.2) gm/dl Albumin (3.4-5.0) gm/dl Globulin (2.5-4.0) gm/dl Albumin/Globulin Ratio (0.9-2) Procalcitonin (0-0.5) ng/ml Urine Color Yellow Urine Appearance Clear (Clear) Urine pH 5.5 (4.5-7.5) Ur Specific Pur[place] 1.020 (1.000-1.030) Urine Protein 2+ H (Negative) Urine Glucose (UA) Negative (Negative) Urine Ketones Trace H (Negative) Urine Blood Negative (Negative) Urine Nitrite Negative (Negative) Urine Bilirubin Negative (Negative) Urine Urobilinogen Negative (Negative) Ur Leukocyte Esterase Trace H (Negative) Urine WBC (Auto) 1-5 (0-5) /hpf Urine RBC (Auto) 0-4 (0-4) /hpf U Hyaline Cast (Auto) 1-5 (0-5) /lpf U Epithel Cells (Auto) 10-20 H (0-5) /lpf Urine Bacteria (Auto) Negative (Negative) COVID-19 Eval Order Influ A Molecular Assay Negative (Negative) Influ B Molecular Assay Negative (Negative) SARS-CoV-2, RNA, NAAT NEGATIVE (NEGATIVE) 01/13/20 Range/Units 16:19 WBC (4.8-10.8) K/uL RBC (4.2-5.4) M/uL Hgb (12.0-16.0) g/dL Hct (37-47) % MCV (80-100) fL MCH (25-34) pg MCHC (32-36) g/dL RDW Std Deviation (36.4-46.3) fL RDW Coeff of Juan Miguel (11.5-14.5) % Plt Count (130-400) K/uL MPV (7.4-10.4) fL Immature Gran % (Auto) % Neut % (Auto) % Lymph % (Auto) % Hanson % (Auto) % Eos % (Auto) % Baso % (Auto) % Neut # (Auto) (1.4-6.5) K/uL Lymph # (Auto) (1.2-3.4) K/uL Hanson # (Auto) (0.11-0.59) K/uL Eos # (Auto) (0-0.5) K/uL Baso # (Auto) (0-0.2) K/uL Immature Gran # (Auto) (0.00-0.02) K/uL PT (9.0-12.0) Seconds INR (0.9-1.1) APTT (21.0-31.0) Seconds PTT Ratio Sodium (136-145) mmol/L Potassium (3.5-5.1) mmol/L Chloride (98-107) mmol/L Carbon Dioxide (21-32) mmol/L Anion Gap (3-11) BUN (7-18) mg/dl Creatinine (0.6-1.2) mg/dl Est Cr Clr Drug Dosing Est GFR ( Amer) Est GFR (Non-Af Amer) BUN/Creatinine Ratio (10-20) Glucose (70-99) mg/dl Lactate 2.2 H* (0.4-2.0) mmol/L Calcium (8.5-10.1) mg/dl Magnesium (1.8-2.4) mg/dl Total Bilirubin (0.2-1) mg/dl AST (15-37) U/L ALT (12-78) U/L Alkaline Phosphatase (45-117) U/L Total Protein (6.4-8.2) gm/dl Albumin (3.4-5.0) gm/dl Globulin (2.5-4.0) gm/dl Albumin/Globulin Ratio (0.9-2) Procalcitonin (0-0.5) ng/ml Urine Color Urine Appearance (Clear) Urine pH (4.5-7.5) Ur Specific Pur[place] (1.000-1.030) Urine Protein (Negative) Urine Glucose (UA) (Negative) Urine Ketones (Negative) Urine Blood (Negative) Urine Nitrite (Negative) Urine Bilirubin (Negative) Urine Urobilinogen (Negative) Ur Leukocyte Esterase (Negative) Urine WBC (Auto) (0-5) /hpf Urine RBC (Auto) (0-4) /hpf U Hyaline Cast (Auto) (0-5) /lpf U Epithel Cells (Auto) (0-5) /lpf Urine Bacteria (Auto) (Negative) COVID-19 Eval Order Influ A Molecular Assay (Negative) Influ B Molecular Assay (Negative) SARS-CoV-2, RNA, NAAT (NEGATIVE) Administered Medications Discontinued Medications Sodium Chloride (Nss 1000ml) 1,000 mls @ 999 mls/hr IV .[id number] JEM Stop: 01/13/20 15:15 Last Infusion: 01/13/20 17:12 Dose: 0 mls/hr Documented by: [id number] Admin: 01/13/20 15:38 Dose: 999 mls/hr Documented by: [id number] Cefepime HCl (Maxipime) 2,000 mg in 20 mls @ 5 mls/min IV NOW STA; Protocol Stop: 01/13/20 14:14 Last Admin: 01/13/20 15:39 Dose: 5 mls/min Documented by: [id number] Acetaminophen (Ofirmev) 1,000 mg in 100 mls @ 400 mls/hr IV NOW STA Stop: 01/13/20 14:25 Last Infusion: 01/13/20 16:00 Dose: 0 mls/hr Documented by: [id number] Admin: 01/13/20 15:38 Dose: 400 mls/hr Documented by: [id number] Sodium Chloride (Nss 1000ml) 500 mls @ 999 mls/hr IV .Q31M ONE Stop: 01/13/20 17:28 Last Infusion: 01/13/20 18:59 Dose: 0 mls/hr Documented by: [id number] Admin: 01/13/20 17:43 Dose: 999 mls/hr Documented by: [id number] Piperacillin Sod/Tazobactam (Sod 3.375 gm/ Dextrose) 115 mls @ 230 mls/hr IV NOW ONE; Protocol Stop: 01/13/20 20:29 Last Admin: 01/13/20 20:40 Dose: 230 mls/hr Documented by: [id number] Imaging Data Radiologist's Impression: SINGLE VIEW CHEST CLINICAL HISTORY: Sepsis. FINDINGS: An AP, portable, upright chest radiograph is compared to study dated 08/10/2018 and correlated with chest CT dated 08/17/2018. The cardiomediastinal silhouette is unremarkable noting atherosclerotic calcification of the thoracic aorta. There are mild bibasilar airspace opacities. No large pleural effusion or pneumothorax is seen. The skeletal structures are osteopenic. The bony thorax is grossly intact. IMPRESSION: Mild bibasilar airspace opacities likely represent scarring/atelectasis. Correlate clinically for evidence of an infectious/inflammatory pneumonitis. CT head/brain wo con CLINICAL HISTORY: confusion COMPARISON STUDY: MRI the brain dated 09/18/2017 TECHNIQUE: Axial CT of the brain is performed from the vertex to the skull base. IV contrast was not administered for this examination. A dose lowering t echnique was utilized adhering to the principles of ALARA. CT DOSE: 537.48 mGy.cm FINDINGS: No intra or extra-axial mass lesions are visualized. There is no CT evidence of acute cortical infarction. There is no evidence of midline shift. There is no acute hemorrhage. No calvarial fractures are visualized. There are patchy white matter hypodensities likely on a small vessel basis. There is no evidence of pathologic ventricular dilatation. There is no evidence of acute sinusitis IMPRESSION: No acute intracranial findings Discharge Plan Visit Data Chief Complaint: Illness ED Provider: Sanjay Jamil Discharge Problem: Sepsis, Acute confusion, Tachycardia, Pneumonia Patient Disposition: Admitted As Inpatient Condition: Fair Discharge Instructions Interventions: ED Discharge Assessment Last Done: 01/13/20 17:59 Discharge Problem: Sepsis Qualifiers: Sepsis type: sepsis due to unspecified organism Sepsis acute organ dysfunction status: without acute organ dysfunction Qualified Code(s): A41.9 - Sepsis, unspecified organism Pneumonia Qualifiers: Pneumonia type: due to unspecified organism Laterality: right Lung location: l ower lobe of lung Qualified Code(s): J18.9 - Pneumonia, unspecified organism
[2020-01-13 14:46] LABS: Basophils # (auto) 0.04 K/uL (0-0.2); Basophils % (auto) 0.2 %; Eosinophils # (auto) 0.01 K/uL (0-0.5); Eosinophils % (auto) 0.1 %; Hematocrit (blood only) 42.4 % (37-47); Immature Granulocytes # (auto) 0.06 K/uL (0.00-0.02); Immature Granulocytes % (auto) 0.3 %; Lymphocytes # (auto) 1.21 K/uL (1.2-3.4); Lymphocytes % (auto) 6.3 %; Mean Corpuscular Hemoglobin 31.9 pg (25-34); Mean Corpuscular Volume 96.6 fL (80-100); Mean Platelet Volume 12.1 fL (7.4-10.4); Monocytes # (auto) 1.67 K/uL (0.11-0.59); Monocytes % (auto) 8.7 %; Neutrophils # (auto) 16.15 K/uL (1.4-6.5); Neutrophils % (auto) 84.4 %; Platelet Count 261 K/uL (130-400); RDW Coefficient of Variation 14.7 % (11.5-14.5); RDW Standard Deviation 52.3 fL (36.4-46.3); Red Blood Count 4.39 M/uL (4.2-5.4); White Blood Count 19.14 K/uL (4.8-10.8)
[2020-01-13 15:03] LABS: Alanine Aminotransferase 29 U/L (12-78); Albumin Level 3.5 gm/dl (3.4-5.0); Aspartate Aminotransferase 22 U/L (15-37); BUN Creatinine Ratio 17.9 (10-20); Blood Urea Nitrogen 15 mg/dl (7-18); Calcium 9.4 mg/dl (8.5-10.1); Carbon Dioxide 25 mmol/L (21-32); Chloride 105 mmol/L (98-107); Est GFR (Non-African American) 63.9; Glucose 123 mg/dl (70-99); Magnesium 2.3 mg/dl (1.8-2.4); Potassium 3.7 mmol/L (3.5-5.1); Sodium 139 mmol/L (136-145)
[2020-01-13 15:06] LABS: Albumin Globulin Ratio 0.9 (0.9-2); Alkaline Phosphatase 101 U/L (45-117); Bilirubin,Total 0.3 mg/dl (0.2-1); Total Protein 7.5 gm/dl (6.4-8.2)
--- NOTE | 2020-01-13 15:08 | XRay Report ---
SINGLE VIEW CHEST CLINICAL HISTORY: Sepsis. FINDINGS: An AP, portable, upright chest radiograph is compared to study dated 08/10/2018 and correlate d with chest CT dated 08/17/2018. The cardiomediastinal silhouette is unremarkable noting atherosclerot ic calcification of the thoracic aorta. There are mild bibasilar airspace opacities. No large pleural effusion or pneumothorax is seen. The skeletal structures are osteopenic. The bony thorax is grossly intact. IMPRESSION: Mild bibasilar airspace opacities likely represent scarring/atelectasis. Correlate clinic ally for evidence of an infectious/inflammatory pneumonitis. ACT 112: Negative or not required by law. Electronically signed by: Sanjay Salas M.D. 01/13/2020 3:07 PM
[2020-01-13 15:25] LABS: Prothrombin Time 10.3 Seconds (9.0-12.0)
--- NOTE | 2020-01-13 15:49 | CT Scan Report ---
CT head/brain wo con CLINICAL HISTORY: confusion COMPARISON STUDY: MRI the brain dated 09/18/2017 TECHNIQUE: Axial CT of the brain is performed from the vertex to the skull base. IV contrast was not administered for this examination. A dose lowering technique was utilized adhering to the principles of ALARA. CT DOSE: 537.48 mGy.cm FINDINGS: No intra or extra-axial mass lesions are visualized. There is no CT evidence of acute cortical infarc tion. There is no evidence of midline shift. There is no acute hemorrhage. No calvarial fractures ar e visualized. There are patchy white matter hypodensities likely on a small vessel basis. There is no evidence of pathologic ventricular dilatation. There is no evidence of acute sinusitis IMPRESSION: No acute intracranial findings ACT 112: Negative or not required by law. Electronically signed by: Duong Murry M.D. 01/13/2020 3:47 PM
[2020-01-13 16:03] LABS: Appearance Urine Clear (Clear); Bacteria Urine Automated Negative (Negative); Bilirubin Urine Negative (Negative); Blood Urine Negative (Negative); Color Urine Yellow; Glucose Urine UA Negative (Negative); Ketones Urine Trace (Negative); Leukocyte Esterase Urine Trace (Negative); Nitrite Urine Negative (Negative); Protein Urine 2+ (Negative); RBC Urine Automated 0-4 /hpf (0-4); Urobilinogen Urine Negative (Negative); pH Urine 5.5 (4.5-7.5)
[2020-01-13 16:40] LABS: Influenza A virus by PCR Negative (Negative); Influenza B virus by PCR Negative (Negative)
--- NOTE | 2020-01-13 16:50 | History & Physical Report ---
Date of Service January 13, 2020 Assessment & Plan (1) Febrile illness: Patient is presents with a fever some very minor ill-defined chest x-ray changes. She is a negative Covid and negative Covid exposures. Reportedly had a possible pill aspiration on 01/11. She is a mild minor elevation of lactic acidosis although she has no anion gap and a negative procalcitonin on presentation. In the ER she was given cefepime. She is confused and is a poor historian according to the emergency room staff. Urine blood cultures were obtained. 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 She was febrile and confused today. The patient states that she felt confused yesterday as well. She denies any shortness of breath, chest pain, headache, body aches, diarrhea, vomiting or urinary complaints. The patient denies any known Covid exposures and as per [facility], there is no Covid at their center. The patient does admit to a mild sore throat. after possible pill aspiration 01/11, covid testing is negative The history is somewhat limited as the patient presents with some confusion. No further history obtainable. Of note, the patient was here for some time and [facility] staff called. They think she may have aspirated on a pill yesterday. Allergies Allergy/AdvReac Type Severity Reaction Status Date / Time phenobarbital Allergy Severe HIVES Verified 01/13/20 16:24 phenytoin Allergy Severe HIVES Verified 01/13/20 16:24 escitalopram AdvReac Intermediate DIARRHEA Unverified 01/13/20 16:24 azithromycin AdvReac Unknown Unknown Unverified 01/13/20 16:24 Home Medications Medication Instructions Recorded Confirmed Type diltiazem HCl 120 mg 120 mg PO QAM 01/14/19 01/13/20 History capsule,extended release 24 hr levothyroxine 25 mcg tablet 25 mcg PO QAM 01/14/19 01/13/20 History levetiracetam 250 mg tablet 250 mg PO BID 90 Days #180 tab 07/22/19 01/13/20 Rx Bifidobacterium infantis [Align] 4 mg PO QAM 01/13/20 01/13/20 History ascorbic acid (vitamin C) [Vitamin 500 mg PO BID 01/13/20 01/13/20 History C] cholecalciferol (vitamin D3) 50 mcg PO QAM 01/13/20 01/13/20 History [Vitamin D3] clopidogrel [Plavix] 75 mg PO QAM 01/13/20 01/13/20 History dorzolamide-timolol (PF) [Cosopt 1 drp OPB BID 01/13/20 01/13/20 History (PF)] levetiracetam [Keppra] 1,000 mg PO BID 01/13/20 01/13/20 History melatonin 1 mg PO HS 01/13/20 01/13/20 History vit C,G-Jb-fgkkk-lutein-zeaxan 1 tab PO BID 01/13/20 01/13/20 History [PreserVision AREDS-2] zinc 50 mg PO QAM 01/13/20 01/13/20 History Past Med/Surg History Surgical History History of breast surgery History of cataract surgery History of dilation and curettage History of hernia repair History of hysterectomy History of oral surgery Hx of tonsillectomy Family History Father Myocardial infarction Cardiac disorder Mother Colorectal cancer Grandfather Diabetes Brother Hypertension Social History Smoking Status: Never smoker Feels Safe at Home: Yes Review of Systems Review of Systems: Mild distress and fatigue no headache, blurry or double vision no speech or swallowing issues no chest pain, pressure or palpitations no shortness of breath, cough or wheezes no abdominal pain, nausea or vomiting, diarrhea or constipation no dysuria, hematuria or frequency no focal joint pain or swelling no back pain, CVA tenderness or radicular pain no bruising, bleeding or rashes no focal signs of weakness or numbness or altered sensation no complaints of anxiety or depression.. Physical Exam Physical Exam: The patient appeared well nourished and normally developed. Vital signs as documented. Head exam is normocephalic atraumatic no scleral icterus Neck is without JVD, thyromegaly, or carotid bruits. Lungs are clear to auscultation, no focal loss of breath sounds Cardiac exam, Rhythm is regular.. No murmurs, rubs or gallops. Abdominal exam reveals normal bowel sounds, soft non tender, no masses Extremities are nonedematous and both pedal pulses are present Neurologic exam is alert and oriented, no focal loss of strength or sensation Skin is without bruises or rashes Psychologically is without concerns for anxiety or depression. Results & Data Results & Data ([facility]) Vital Signs (Past 12 Hours) Vital Signs Temp Pulse Resp BP Pulse Ox 01/13/20 15:00 100.4 F H 01/13/20 14:21 99.7 F H 108 H 18 121/74 95 PG Care Time/CCT Total # of Minutes Spent Total Time Spent with Patient: Total time spent is greater than 50% in coordination of care (as documented) at patient's floor/unit and/or counseling patient: Coding Level of Care Code 37968 OBS Care - Level 3 Diagnoses Febrile illness R50.9 Epilepsy G40.909 Hypothyroidism E03.9 CAD (coronary artery disease) I25.10 DVT prophylaxis Z29.9
[2020-01-13] MEDS ORDERED: SODIUM CHLORIDE 0.9% 1000ML 500 ML IV ONE (16:58)
--- NOTE | 2020-01-13 18:09 | Electrocardiogram Report ---
Test Reason : Blood Pressure : / mmHG Vent. Rate : 094 BPM Atrial Rate : 094 BPM P-R Int : 146 ms QRS Dur : 084 ms QT Int : 374 ms P-R-T Axes : 069 039 072 degrees QTc Int : 467 ms Normal sinus rhythm When compared with ECG of 20-SEP-2017 06:33, No significant change was found Confirmed by Silvino Hobbs ([id number]) on 01/13/2020 6:08:50 PM Referred By: [facility] Confirmed By:Gerardo Hobbs
[2020-01-13] MEDS ORDERED: ACETAMINOPHEN 325 MG TAB PO PRN (18:49)
[2020-01-13] MEDS ORDERED: PIPERACILL/TAZOBAC CONSULT ACTIVE PRN (18:49)
[2020-01-13] MEDS ORDERED: ONDANSETRON INJ 2 MG/ML 2 ML VIAL IV PRN (18:49)
[2020-01-13] MEDS ORDERED: PIPERACILLIN/TAZOBACTAM 3.375 GM in DEXTROSE 5% 100 ML IV ONE (20:00)
[2020-01-13] MEDS ORDERED: levETIRAcetam 250 MG TAB PO SCH (21:00)
[2020-01-13] MEDS ORDERED: levETIRAcetam 500 MG TAB PO SCH (21:00)
[2020-01-13] MEDS ORDERED: DORZOLAMIDE/TIMOLOL 22.3/6.8MG/ML 10 ML BTL OP SCH (21:00)
[2020-01-13] MEDS ORDERED: MELATONIN 3 MG TAB PO SCH (22:00)
[2020-01-14] MEDS ORDERED: PIPERACILLIN/TAZOBACTAM 3.375 GM in DEXTROSE 5% 100 ML IV SCH (02:00)
[2020-01-14 03:30] LABS: Hematocrit (blood only) 38.2 % (37-47); Hemoglobin 12.9 g/dL (12.0-16.0); Mean Corpuscular Hemoglobin 32.6 pg (25-34); Mean Corpuscular Hgb Conc 33.8 g/dL (32-36); Mean Corpuscular Volume 96.5 fL (80-100); Mean Platelet Volume 12.2 fL (7.4-10.4); Platelet Count 238 K/uL (130-400); RDW Standard Deviation 52.7 fL (36.4-46.3); Red Blood Count 3.96 M/uL (4.2-5.4); White Blood Count 16.45 K/uL (4.8-10.8)
[2020-01-14 03:53] LABS: BUN Creatinine Ratio 13.5 (10-20); Calcium 8.3 mg/dl (8.5-10.1); Creatinine Clr Calc Pharmacy 60.3 ml/min; Est GFR (African American) 94.8; Est GFR (Non-African American) 81.8; Potassium 3.5 mmol/L (3.5-5.1)
[2020-01-14] MEDS ORDERED: LEVOTHYROXINE SODIUM 25 MCG TABLET PO SCH (06:30)
[2020-01-14] MEDS ORDERED: dilTIAZem HCL 120 MG CAPCR PO SCH (09:00)
[2020-01-14] MEDS ORDERED: CLOPIDOGREL BISULFATE 75 MG TAB PO SCH (09:00)
--- NOTE | 2020-01-14 17:14 | Discharge Summary ---
Date of Service January 14, 2020 Admission HPI Per Admitting Provider 89-year-old female who presents by EMS from [facility]. She was febrile and confused today. The patient states that she felt confused yesterday as well. She denies any shortness of breath, chest pain, headache, body aches, diarrhea, vomiting or urinary complaints. The patient denies any known Covid exposures and as per [facility], there is no Covid at their center. The patient does admit to a mild sore throat. after possible pill aspiration 01/11, covid testing is negative The history is somewhat limited as the patient presents with some confusion. No further history obtainable. Of note, the patient was here for some time and [facility] staff called. They think she may have aspirated on a pill yesterday. Principal Diagnosis Aspiration pneumonia/pneumonitis Discharge Exam The patient appeared well she was on room air she was not with any labored breathing Vital signs as documented. Lungs are clear to auscultation and appear unlabored Cardiac exam, Rhythm is regular.. No murmurs, rubs or gallops. Abdominal exam reveals normal bowel sounds, soft non tender, no masses Extremities are nonedematous and both pedal pulses are normal. Neurologic exam is alert and oriented, no focal loss of strength or sensation Skin is without bruises or rashes Psychologically is without concerns for anxiety or depression. Discharge Data Allergies Allergy/AdvReac Type Severity Reaction Status Date / Time phenobarbital Allergy Severe HIVES Verified 01/13/20 16:24 phenytoin Allergy Severe HIVES Verified 01/13/20 16:24 escitalopram AdvReac Intermediate DIARRHEA Unverified 01/13/20 16:24 azithromycin AdvReac Unknown Unknown Unverified 01/13/20 16:24 Consultations 01/13/20 16:43 ED Decision to Admit Stat 01/13/20 18:49 Consult Case Management - Discharge Planning Routine Ordered Studies 01/13/20 14:11 CT head/brain wo con Stat Hospital Course (1) Febrile illness: Patient is presents with a fever some very minor ill-defined chest x-ray changes. She is a negative Covid and negative Covid exposures. Reportedly had a possible pill aspiration on 01/11. In the ER she was given cefepime. She is confused and is a poor historian according to the emergency room staff. Urine blood cultures were obtained. Patient was placed on Zosyn to cover gram negatives and anaerobic organisms possible aspiration pneumonia patient did remarkably well she had no complaints or problems she will be discharged on Augmentin elixir to complete a 1 week course (2) Epilepsy: Patient with history of epilepsy maintained on Keppra 1250 twice daily (3) Hypothyroidism: Patient history of hypothyroidism, Synthroid 25 mcg is all that she is ordered, last TSH checked was in October 2019 at 3.5 (4) CAD (coronary artery disease): She with a history of coronary and cerebrovascular disease maintained on Plavix and diltiazem 120, 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 as documented in a neurology consult from 2018 Total Time Total Time Spent Total Time Spent (In Minutes): It required greater than 30 minutes to prepare this patient for discharge Discharge Plan Discharge Items Reason For Visit: FEVER Condition on Discharge: Fair Medications and DC Order Prescriptions: No Action levetiracetam [Keppra] 250 mg tablet 250 mg PO BID 90 Days Qty: 180 RF: 1 levothyroxine 25 mcg tablet 25 mcg PO QAM RF: 0 diltiazem HCl 120 mg capsule,extended release 24hr 120 mg PO QAM RF: 0 ascorbic acid (vitamin C) [Vitamin C] 500 mg Tablet 500 mg PO BID RF: 0 zinc 50 mg Tablet 50 mg PO QAM RF: 0 melatonin 1 mg Tablet 1 mg PO HS RF: 0 levetiracetam [Keppra] 1,000 mg tablet 1,000 mg PO BID RF: 0 Align 4 mg capsule 4 mg PO QAM RF: 0 cholecalciferol (vitamin D3) [Vitamin D3] 50 mcg (2,000 unit) Capsule 50 mcg PO QAM RF: 0 dorzolamide-timolol (PF) [Cosopt (PF)] 2-0.5 % dropperette 1 drp OPB BID RF: 0 PreserVision AREDS-2 [id number]-[id number]-mg Capsule 1 tab PO BID RF: 0 clopidogrel [Plavix] 75 mg tablet 75 mg PO QAM RF: 0 Admission Data Admit Date/Time: 01/13/20 17:06 Attending Provider: Radhames Ponce Admit Provider: Radhames Ponce Primary Care Provider: Aneudy Caceres Other Providers: Covaleski,Radhames E. Coding Level of Care Code D/C Day Management >30 mins Diagnoses Febrile illness R50.9 Epilepsy G40.909 Hypothyroidism E03.9 CAD (coronary artery disease) I25.10
== END 2020-01-14 13:15 | disposition home or self-care (01) ==
LOC: 2N 13:58 → ED 13:58 → 2N 17:59